=== PATIENT | male | born 1970 | race Caucasian/White ===

== ENCOUNTER 2021-08-10 18:51 | Observation (INO) ==
[2021-08-10 19:36] LABS: Basophils # (auto) 0.01 K/uL (0-0.2); Basophils % (auto) 0.1 %; Eosinophils # (auto) 0.04 K/uL (0-0.5); Eosinophils % (auto) 0.5 %; Hematocrit (blood only) 45.7 % (42-52); Hemoglobin 15.6 g/dL (14.0-18.0); Immature Granulocytes # (auto) 0.01 K/uL (0.00-0.02); Immature Granulocytes % (auto) 0.1 %; Lymphocytes # (auto) 0.43 K/uL (1.2-3.4); Lymphocytes % (auto) 5.3 %; Mean Corpuscular Hemoglobin 31.1 pg (25-34); Mean Corpuscular Hgb Conc 34.1 g/dL (32-36); Mean Platelet Volume 10.1 fL (7.4-10.4); Monocytes # (auto) 0.28 K/uL (0.11-0.59); Monocytes % (auto) 3.5 %; Neutrophils % (auto) 90.5 %; Platelet Count 161 K/uL (130-400); RDW Coefficient of Variation 12.9 % (11.5-14.5); RDW Standard Deviation 43.1 fL (36.4-46.3); Red Blood Count 5.02 M/uL (4.7-6.1); White Blood Count 8.07 K/uL (4.8-10.8)
[2021-08-10 19:47] LABS: Partial Thromboplastin Time 26.5 Seconds (21.0-31.0); Prothrombin Time 10.9 Seconds (9.0-12.0)
[2021-08-10 19:57] LABS: Troponin I < 0.03 ng/ml (0-0.04)
[2021-08-10 19:58] LABS: Alanine Aminotransferase 32 U/L (7-52); Albumin Globulin Ratio 1.5 (0.9-2); Albumin Level 4.7 gm/dl (3.4-5.0); Alkaline Phosphatase 33 U/L (34-104); Anion Gap 9 (3-11); Aspartate Aminotransferase 23 U/L (13-39); BUN Creatinine Ratio 15.2 (10-20); Bilirubin,Total 1.2 mg/dl (0.2-1.0); Blood Urea Nitrogen 15 mg/dl (6-23); Calcium 9.2 mg/dl (8.5-10.1); Carbon Dioxide 23 mmol/L (21-32); Chloride 101 mmol/L (98-107); Creatinine Clr Calc Pharmacy 125.5 ml/min; Est GFR (African American) 101.1 ml/min; Est GFR (Non-African American) 87.2 ml/min; Globulin 3.1 gm/dl (2.5-4.0); Glucose 110 mg/dl (70-99(Fasting)); Potassium 4.1 mmol/L (3.5-5.1); Sodium 133 mmol/L (136-145); Total Protein 7.8 gm/dl (6.0-8.3)
[2021-08-10 20:13] LABS: Appearance Urine Clear (Clear); Bilirubin Urine Negative (Negative); Blood Urine Negative (Negative); Color Urine Yellow; Glucose Urine UA Negative (Negative); Ketones Urine Negative (Negative); Leukocyte Esterase Urine Negative (Negative); Nitrite Urine Negative (Negative); Protein Urine Negative (Negative); Specific Gravity Urine 1.019 (1.000-1.030); Urobilinogen Urine Negative (Negative)
[2021-08-10] MEDS ORDERED: SODIUM CHLORIDE 0.9% 500 ML IV ONE (20:16)
[2021-08-10] MEDS ORDERED: ASPIRIN CHEW 324 MG PO STA (20:21)
[2021-08-10] MEDS ORDERED: SODIUM CHLORIDE 0.9% 1000ML 1,000 ML IV ONE (20:21)
--- NOTE | 2021-08-10 20:21 | Emergency Department Note ---
Impression & Plan Mobitz type 1 second degree atrioventricular block, Hyponatremia, Dizziness, Bigeminy ED Provider Note NAME: SAMMIE CHINO AGE: 51 SEX: M : 1970 ARRIVES VIA: Walk-In INFORMANT: Patient ED PROVIDER(S): JuanJ ose Marino DO CHIEF COMPLAINT: dizzy HPI: Patient is a 51-year-old male who presents the ER not feeling well. Symptoms started around 1 PM today. He has been getting some twinges in his chest intermittently. He feels dizzy and weak like he is intoxicated. He admits to no belly pain, nausea, vomiting, or diarrhea. No dysuria, urgency, or frequency. No significant shortness of breath. Unsteadiness comes and goes but he is feeling a little bit better currently. Does have a history of elevated blood pressure but resolved with losing weight. Denies any history of diabetes, hyperlipidemia, CAD or sudden in his family at young age. No previous apparent rhythms. ROS: See above HPI for pertinent positives & negatives. A total of 10 systems reviewed and were otherwise negative. PAST MEDICAL HISTORY:See Below PAST SURGICAL HISTORY:See Below FAMILY HISTORY:See Below SOCIAL HISTORY:See Below HOME MEDICATIONS:See Below ALLERGIES:See Below VITALS:See Below PHYSICAL EXAMINATION: GENERAL: Sitting up in bed, alert, well appearing, well nourished, no distress, non-toxic EYE EXAM: normal conjunctiva. OROPHARYNX: no exudate, no erythema, lips, buccal mucosa, and tongue normal and mucous membranes are moist NECK: supple, no nuchal rigidity, no adenopathy, non-tender LUNGS: Clear to auscultation. Normal chest wall mechanics HEART: no murmurs, S1 normal and S2 normal ABDOMEN: abdomen soft, non-tender, normo-active bowel sounds, no masses, no rebound or guarding. UPPER EXTREMITIES: upper extremities are grossly normal. LOWER EXTREMITIES: No pitting edema. NEURO EXAM: Normal sensorium, cranial nerves II-XII intact, normal speech, no weakness of arms, no weakness of legs. No drift. Finger to nose intact. Gross sensation intact. MEDICAL DECISION MAKING: Patient is a 51-year-old male who presents the ER for feeling dizzy and some intermittent chest pain. IV was established blood work was obtained. Labs showed no significant leukocytosis or anemia. INR was unremarkable. BMP with mild hyponatremia. LFTs bilirubin was unremarkable. Troponin was negative. UA was clean. Covid was negative. Chest x-ray was unremarkable and CT head was negative. EKG showed Mobitz 1 and intermittently on the monitor he did have some bigeminy. He notes he is feeling better my question if earlier today when he was symptomatic he could have went into a Mobitz 2 however this was not seen on monitoring. Based on the abnormal EKG and the dizziness to discussed the hospitalist for observation. Triage Nursing notes reviewed. Limited review of prior medical records performed Vital Signs: reviewed and remarkable for HTN Differential diagnosis: Differential diagnosis includes etiologies such as benign positional vertigo, dehydration, hypovolemia, anemia, tumor, infection, hypoglycemia, electrolyte abnormalities, cardiac sources, intracerebral event, toxicologic, neurological, as well as others were entertained. ER treatment provided: See below Diagnostics interpreted by me: ECG: Sinus rhythm with a Mobitz 1 rate of 60 Normal axis Right bundle branch block Nonspecific ST wave changes in the lateral leads QTC 410 Cardiac Monitoring: An order was placed for continuous cardiac monitoring. The monitor shows a rate of 60 with bigeminy rhythm. Laboratory studies: As stated above and show below. Imaging studies: CT head was negative Chest x-ray was unremarkable Consultation(s): Discussed with Evelyn Lubin for further evaluation Procedures: none Critical Care: None Past Med/Surg History Social History Smoking Status: Former smoker Tobacco Type: Cigarettes Feels Safe at Home: Yes Allergies Allergies Allergy/AdvReac Type Severity Reaction Status Date / Time adhesive tape AdvReac SKIN TEARS Unverified 08/10/21 22:59 Home Meds Home Medications Medication Instructions Recorded Confirmed No Known Home Medications 08/10/21 08/10/21 Results & Data (ED) Vital Signs Vital Signs - 24 hr 08/10/21 18:59 08/10/21 19:52 08/10/21 21:00 Temperature 36.9 C Temperature Source Temporal Artery Scan Pulse Rate 60 Pulse Rate [Right Finger] 65 70 Pulse Rate from SpO2 Sensor Pulse Strength [Right Finger] Normal Normal Respiratory Rate 16 17 18 Respiratory Effort / Characteristics Non-Labored Non-Labored Respiratory Depth Normal Normal Normal Respiratory Pattern Regular Regular Blood Pressure 189/98 H Blood Pressure [Right Arm] 178/97 H 166/91 H Blood Pressure Mean 128 Blood Pressure Mean [Right Arm] 124 116 Blood Pressure Position [Right Arm] Lying Pulse Oximetry 96 96 96 Oxygen Delivery Method Room Air Room Air Room Air Sepsis Recent Fever Within 48 Hours No Sepsis New/Unexplained Change in Mental Status No Sepsis Action Taken by Nursing No Action Required 08/10/21 22:45 08/10/21 23:00 Temperature Temperature Source Pulse Rate 79 65 Pulse Rate [Right Finger] Pulse Rate from SpO2 Sensor 78 70 Pulse Strength [Right Finger] Respiratory Rate 19 18 Respiratory Effort / Characteristics Respiratory Depth Respiratory Pattern Blood Pressure 178/91 H Blood Pressure [Right Arm] Blood Pressure Mean 120 Blood Pressure Mean [Right Arm] Blood Pressure Position [Right Arm] Pulse Oximetry 96 96 Oxygen Delivery Method Sepsis Recent Fever Within 48 Hours Sepsis New/Unexplained Change in Mental Status Sepsis Action Taken by Nursing Laboratory Data Result diagrams: 08/10/21 19:27 08/10/21 19:27 Lab Results 08/10/21 08/10/21 08/10/21 Range/Units 19:27 19:27 19:27 WBC 8.07 (4.8-10.8) K/uL RBC 5.02 (4.7-6.1) M/uL Hgb 15.6 (14.0-18.0) g/dL Hct 45.7 (42-52) % MCV 91.0 (80-100) fL MCH 31.1 (25-34) pg MCHC 34.1 (32-36) g/dL RDW Std Deviation 43.1 (36.4-46.3) fL RDW Coeff of [place] 12.9 (11.5-14.5) % Plt Count 161 (130-400) K/uL MPV 10.1 (7.4-10.4) fL Immature Gran % (Auto) 0.1 % Neut % (Auto) 90.5 % Lymph % (Auto) 5.3 % [place] % (Auto) 3.5 % Eos % (Auto) 0.5 % Baso % (Auto) 0.1 % Neut # (Auto) 7.30 H (1.4-6.5) K/uL Lymph # (Auto) 0.43 L (1.2-3.4) K/uL [place] # (Auto) 0.28 (0.11-0.59) K/uL Eos # (Auto) 0.04 (0-0.5) K/uL Baso # (Auto) 0.01 (0-0.2) K/uL Immature Gran # (Auto) 0.01 (0.00-0.02) K/uL PT 10.9 (9.0-12.0) Seconds INR 1.0 (0.9-1.1) APTT 26.5 (21.0-31.0) Seconds PTT Ratio 1.0 Sodium 133 L (136-145) mmol/L Potassium 4.1 (3.5-5.1) mmol/L Chloride 101 (98-107) mmol/L Carbon Dioxide 23 (21-32) mmol/L Anion Gap 9 (3-11) BUN 15 (6-23) mg/dl Creatinine 0.99 (0.6-1.4) mg/dl Est Cr Clr Drug Dosing 125.5 ml/min Est GFR ( Amer) 101.1 ml/min Est GFR (Non-Af Amer) 87.2 ml/min BUN/Creatinine Ratio 15.2 (10-20) Glucose 110 H (70-99(Fasting)) mg/dl Calcium 9.2 (8.5-10.1) mg/dl Phosphorus (2.5-4.9) mg/dl Magnesium (1.7-2.4) mg/dl Total Bilirubin 1.2 H (0.2-1.0) mg/dl AST 23 (13-39) U/L ALT 32 (7-52) U/L Alkaline Phosphatase 33 L (34-104) U/L Troponin I < 0.03 (0-0.04) ng/ml Total Protein 7.8 (6.0-8.3) gm/dl Albumin 4.7 (3.4-5.0) gm/dl Globulin 3.1 (2.5-4.0) gm/dl Albumin/Globulin Ratio 1.5 (0.9-2) Urine Color Urine Appearance (Clear) Urine pH (4.5-7.5) Ur Specific [place] (1.000-1.030) Urine Protein (Negative) Urine Glucose (UA) (Negative) Urine Ketones (Negative) Urine Blood (Negative) Urine Nitrite (Negative) Urine Bilirubin (Negative) Urine Urobilinogen (Negative) Ur Leukocyte Esterase (Negative) SARS-CoV-2, RNA, NAAT (NEGATIVE) 03/23/22 03/23/22 03/23/22 Range/Units 19:27 20:43 Unknown WBC (4.8-10.8) K/uL RBC (4.7-6.1) M/uL Hgb (14.0-18.0) g/dL Hct (42-52) % MCV (80-100) fL MCH (25-34) pg MCHC (32-36) g/dL RDW Std Deviation (36.4-46.3) fL RDW Coeff of [place] (11.5-14.5) % Plt Count (130-400) K/uL MPV (7.4-10.4) fL Immature Gran % (Auto) % Neut % (Auto) % Lymph % (Auto) % [place] % (Auto) % Eos % (Auto) % Baso % (Auto) % Neut # (Auto) (1.4-6.5) K/uL Lymph # (Auto) (1.2-3.4) K/uL [place] # (Auto) (0.11-0.59) K/uL Eos # (Auto) (0-0.5) K/uL Baso # (Auto) (0-0.2) K/uL Immature Gran # (Auto) (0.00-0.02) K/uL PT (9.0-12.0) Seconds INR (0.9-1.1) APTT (21.0-31.0) Seconds PTT Ratio Sodium (136-145) mmol/L Potassium (3.5-5.1) mmol/L Chloride (98-107) mmol/L Carbon Dioxide (21-32) mmol/L Anion Gap (3-11) BUN (6-23) mg/dl Creatinine (0.6-1.4) mg/dl Est Cr Clr Drug Dosing ml/min Est GFR ( Amer) ml/min Est GFR (Non-Af Amer) ml/min BUN/Creatinine Ratio (10-20) Glucose (70-99(Fasting)) mg/dl Calcium (8.5-10.1) mg/dl Phosphorus 2.2 L (2.5-4.9) mg/dl Magnesium 2.1 (1.7-2.4) mg/dl Total Bilirubin (0.2-1.0) mg/dl AST (13-39) U/L ALT (7-52) U/L Alkaline Phosphatase (34-104) U/L Troponin I (0-0.04) ng/ml Total Protein (6.0-8.3) gm/dl Albumin (3.4-5.0) gm/dl Globulin (2.5-4.0) gm/dl Albumin/Globulin Ratio (0.9-2) Urine Color Yellow Urine Appearance Clear (Clear) Urine pH 5.0 (4.5-7.5) Ur Specific [place] 1.019 (1.000-1.030) Urine Protein Negative (Negative) Urine Glucose (UA) Negative (Negative) Urine Ketones Negative (Negative) Urine Blood Negative (Negative) Urine Nitrite Negative (Negative) Urine Bilirubin Negative (Negative) Urine Urobilinogen Negative (Negative) Ur Leukocyte Esterase Negative (Negative) SARS-CoV-2, RNA, NAAT NEGATIVE (NEGATIVE) Administered Medications Discontinued Medications Aspirin (Aspirin Chew 324 Mg) 324 mg PO NOW STA Stop: 08/10/21 20:22 Last Admin: 08/10/21 20:37 Dose: 324 mg Documented by: [id number] Sodium Chloride (Nss) 500 mls @ 999 mls/hr IV .Q31M ONE Stop: 08/10/21 20:46 Last Infusion: 08/10/21 21:33 Dose: 0 mls/hr Documented by: [id number] Admin: 08/10/21 20:37 Dose: 999 mls/hr Documented by: [id number] Sodium Chloride (Nss 1000ml) 1,000 mls @ 999 mls/hr IV .Q1H1M ONE Stop: 08/10/21 21:21 Last Infusion: 08/10/21 21:39 Dose: 0 mls/hr Documented by: [id number] Admin: 08/10/21 20:37 Dose: 999 mls/hr Documented by: [id number] Discharge Plan Visit Data Chief Complaint: Dizziness Stated Complaint: LIGHTHEADED, TWITCHY, FEELS LIKE DRUNK ED Provider: Juan Jose Marino Discharge Problem: Mobitz type 1 second degree atrioventricular block, Hyponatremia, Dizziness, Bigeminy Forms Stand Alone Forms: [employer] Prescriptions Prescriptions: No Action No Known Home Medications RF: 0 Referrals Referrals: PCP,NO [Primary Care Provider] -
[2021-08-10 23:12] LABS: Magnesium 2.1 mg/dl (1.7-2.4); Phosphorus 2.2 mg/dl (2.5-4.9)
--- NOTE | 2021-08-10 23:12 | History & Physical Report ---
Date of Service August 10, 2021 Assessment & Plan (1) Mobitz type 1 second degree atrioventricular block: (2) Hyponatremia: (3) Hypophosphatemia: Plan: David Estrada is a 51-year-old male with no known PMH who is a former smoker (quit 7-8 years ago) here with complaint of a strange feeling in his chest and dizziness. Found to have Mobitz type I AV block on EKG. Mobitz type I second-degree AV block - Unclear etiology -- potassium and magnesium normal, no medications, no obvious infectious symptoms - Lyme antibodies and TSH to rule these out as reversible causes - If no reversible cause found and patient continues to be symptomatic oir were to become unstable may be candidate for pacemaker - Will consult cardiology in AM - Echocardiogram ordered - Admit for observation to PCU - Continuous cardiac monitoring - If unstable would require atropine IV and, if ineffective, transcutaneous pacing and/or dopamine vs epinephrine infusion - NPO in case of need for pacemaker -- NSS @ 125cc/h for mIVF Hyponatremia - Mildly low at 133 - Will give NSS at 125 cc/h overnight - If unresolved could possibly benefit from further workup to find cause - BMP in AM Hypophosphatemia - Phos at 2.2 - Will replete and recheck in AM DVT ppx: Lovenox 40mg SQ daily History of Present Illness Primary Care Provider: NO PCP David Estrada is a 51-year-old male with no known PMH who is a former smoker (quit 7-8 years ago) here with complaint of a strange feeling in his chest and dizziness. Patient states his symptoms began today aroun 1PM -- he started feeling something in his chest, which he characterizes as "twinges", but says it was not pain. He also felt dizzy and weak. [place] unsteady on his feet to a certain degree. He denies any falls, n/v, f/c, SOB, cough, abd pain, weight changes, stool changes, skin changes, urinary symptoms, swelling, numbness. Patient states he was found to have elevated BP in the past but lost weight and this resolved. He does not have a history of any other medical conditions. Denies family history of cardiac disease or sudden cardiac . At present, patient states the chest discomfort has now gone away, and since he is resting in bed not really feeling dizzy or unsteady. In the ED patient had an EKG showing Mobitz Type I 2nd degree heart block. CXR shows no obvious acute pulmonary disease -- he does have an enlarged cardiac silhouette. He had CT head showing mild brain volume loss. No mass, hemorrhage, or acute infarct. Lab work showed normal WBC, Hgb, and Plt. Sodium was mildly decreased to 133, K was normal at 4.1, Mag normal at 2.1, and Phos low at 2.2. Troponin was negative. He received NSS 2L bolus and aspirin 324mg PO x1. Allergies Allergy/AdvReac Type Severity Reaction Status Date / Time adhesive tape AdvReac SKIN TEARS Unverified 08/10/21 22:59 Home Medications Medication Instructions Recorded Confirmed Type No Known Home Medications 08/10/21 08/10/21 History Past Med/Surg History Social History Smoking Status: Never smoker Tobacco Type: Cigarettes Do You Dip or Chew Tobacco: Yes; Tobacco Cessation Education Requested by Patient: No Hx Alcohol Use: Yes Alcohol type: beer Hx Substance Use: No Preferred Language: Maldivian Communication Ability: Effective Cigar Wrapper Required: No Beliefs That Will Affect Care: None Current Living Situation: Alone Other Information That Helps Us Care for You: No Feels Safe at Home: Yes Assistive Devices: None Review of Systems Review of Systems: All systems reviewed & are unremarkable except as noted in HPI & below Physical Exam Physical Exam: GENERAL: A&Ox3. NAD. HEENT: PERRL, EOMI. Moist mucous membranes. NECK: No JVD. No lymphadenopathy. CHEST/LUNGS: CTAB A/P. No crackles, wheezes, rales, ronchi. HEART: RRR. No m/g/r. No carotid bruits. ABDOMEN: NT/ND, soft. BS+ x4 EXTREMITIES: No cyanosis, no clubbing, no edema SKIN: Warm and dry. No rashes or lesions. PSYCHIATRIC: Euthymic affect, no SI, no pressured speech, no hallucinations NEUROLOGIC: No FND. CN II-XII grossly intact. Results & Data Results & Data ([facility]) Vital Signs (Past 12 Hours) Vital Signs Temp Pulse Pulse Resp BP BP Pulse Ox 08/10/21 23:00 65 18 178/91 H 96 08/10/21 22:45 79 19 96 08/10/21 21:00 70 18 166/91 H 96 08/10/21 19:52 65 17 178/97 H 96 08/10/21 18:59 36.9 C 60 16 189/98 H 96 Laboratory Results Laboratory Results WBC 8.07 K/uL (4.8-10.8) 08/10/21: RBC 5.02 M/uL (4.7-6.1) 08/10/21: Hgb 15.6 g/dL (14.0-18.0) 08/10/21 Hct 45.7 % (42-52) 08/10/21 MCV 91.0 fL (80-100) 08/10/21 MCH 31.1 pg (25-34) 08/10/21 MCHC 34.1 g/dL (32-36) 08/10/21 RDW Std Deviation 43.1 fL (36.4-46.3) 08/10/21 RDW Coeff of Tova 12.9 % (11.5-14.5) 08/10/21 Plt Count 161 K/uL (130-400) 08/10/21 MPV 10.1 fL (7.4-10.4) 08/10/21 Immature Gran % (Auto) 0.1 % 08/10/21 Neut % (Auto) 90.5 % 08/10/21: Lymph % (Auto) 5.3 % 08/10/21 [place] % (Auto) 3.5 % 08/10/21: Eos % (Auto) 0.5 % 08/10/21: Baso % (Auto) 0.1 % 08/10/21 Neut # (Auto) 7.30 K/uL (1.4-6.5) H 08/10/21: Lymph # (Auto) 0.43 K/uL (1.2-3.4) L 08/10/21 [place] # (Auto) 0.28 K/uL (0.11-0.59) 08/10/21 Eos # (Auto) 0.04 K/uL (0-0.5) 08/10/21 Baso # (Auto) 0.01 K/uL (0-0.2) 08/10/21 19: Immature Gran # (Auto) 0.01 K/uL (0.00-0.02) 08/10/21 19: PT 10.9 Seconds (9.0-12.0) 08/10/21 19: INR 1.0 (0.9-1.1) 08/10/21: APTT 26.5 Seconds (21.0-31.0) 08/10/21: PTT Ratio 1.0 08/10/21 19: Sodium 133 mmol/L (136-145) L 08/10/21: Potassium 4.1 mmol/L (3.5-5.1) 08/10/21: Chloride 101 mmol/L (98-107) 08/10/21: Carbon Dioxide 23 mmol/L (21-32) 08/10/21: Anion Gap 9 (3-11) 08/10/21: BUN 15 mg/dl (6-23) 08/10/21 19: Creatinine 0.99 mg/dl (0.6-1.4) 08/10/21: Est Cr Clr Drug Dosing 125.5 ml/min 08/10/21: Est GFR ( Amer) 101.1 ml/min 08/10/21: Est GFR (Non-Af Amer) 87.2 ml/min 08/10/21: BUN/Creatinine Ratio 15.2 (10-20) 08/10/21 19: Glucose 110 mg/dl (70-99(Fasting)) H 08/10/21 19: Calcium 9.2 mg/dl (8.5-10.1) 08/10/21: Phosphorus 2.2 mg/dl (2.5-4.9) L 08/10/21: Magnesium 2.1 mg/dl (1.7-2.4) 08/10/21 19: Total Bilirubin 1.2 mg/dl (0.2-1.0) H 08/10/21 19: AST 23 U/L (13-39) 08/10/21 19: ALT 32 U/L (7-52) 08/10/21 19:27 Alkaline Phosphatase 33 U/L (34-104) L 08/10/21 19:27 Troponin I < 0.03 ng/ml (0-0.04) 08/10/21 19: Total Protein 7.8 gm/dl (6.0-8.3) 08/10/21 19:27 Albumin 4.7 gm/dl (3.4-5.0) 08/10/21 19: Globulin 3.1 gm/dl (2.5-4.0) 08/10/21 19: Albumin/Globulin Ratio 1.5 (0.9-2) 08/10/21 19: TSH 0.828 uIu/ml (0.300-4.500) 08/10/21 19:47 Urine Color Yellow 08/10/21 Unknown Urine Appearance Clear (Clear) 08/10/21 Unknown Urine pH 5.0 (4.5-7.5) 08/10/21 Unknown Ur Specific [place] 1.019 (1.000-1.030) 08/10/21 Unknown Urine Protein Negative (Negative) 08/10/21 Unknown Urine Glucose (UA) Negative (Negative) 08/10/21 Unknown Urine Ketones Negative (Negative) 08/10/21 Unknown Urine Blood Negative (Negative) 08/10/21 Unknown Urine Nitrite Negative (Negative) 08/10/21 Unknown Urine Bilirubin Negative (Negative) 08/10/21 Unknown Urine Urobilinogen Negative (Negative) 08/10/21 Unknown Ur Leukocyte Esterase Negative (Negative) 08/10/21 Unknown Lyme Disease IgG Ab Negative (Negative) 08/10/21 19:47 Lyme Disease IgM Ab Negative (Negative) 08/10/21 19:47 SARS-CoV-2, RNA, NAAT NEGATIVE (NEGATIVE) 08/10/21 20:43 Code Status & VTE Plan VTE Prophylaxis Plan VTE Prophylaxis will be ordered: Yes Supervising Physician Co-Signing Physician Notes Patient seen and examined, chart reviewed, case discussed with Dr. Prieto and I agree with the assessment and plan as above. In brief, patient is a 51yo male with no significant past medical history presenting with episodic chest discomfort, dizziness. Unremarkable exam No evidence of failure +S1/S2, regular, no m/r/g. Cardiac sounds somewhat muffled - possibly secondary to body habitus Labs and images reviewed Assessment/Plan -Telemetry monitoring -Trend troponin -Check 2D echo -Cardiology consultation appreciated -Remainder as above Resident Activity Tracking Resident Involvement: Resident Care Provided Care Provided: Adult Hospital Medicine
[2021-08-11] MEDS ORDERED: MoRPHine SULFATE 2 MG/ML CARP IV PRN (01:11)
[2021-08-11] MEDS ORDERED: ACETAMINOPHEN 325 MG TAB PO PRN (01:11)
[2021-08-11] MEDS ORDERED: SODIUM CHLORIDE 0.9% 1000ML 1,000 ML IV SCH (01:11)
[2021-08-11] MEDS ORDERED: SODIUM PHOSPHATE 3 MMOL/1 ML INFUSION IV ONE (01:11)
[2021-08-11] MEDS ORDERED: NITROGLYCERIN SL 0.4 MG/TAB TAB SL PRN (01:11)
[2021-08-11] MEDS ORDERED: MAGNESIUM HYDROXIDE SUSP 30 ML UDC PO PRN (01:11)
[2021-08-11] MEDS ORDERED: SODIUM PHOSPHATE 30 MMOL in SODIUM CHLORIDE 0.9% 500 ML IV ONE (01:30)
[2021-08-11] MEDS: SODIUM CHLORIDE 0.9% 1000ML 1,000 ML IV SCH ×2 (02:12→10:47)
[2021-08-11 02:24] LABS: Lyme Ab IgG w/WB Rflx Negative (Negative); Lyme Ab IgM w/WB Rflx Negative (Negative)
--- NOTE | 2021-08-11 03:51 | Billing Data ---
Date of Service August 11, 2021 Coding Level of Care Code INT OBSERVATION CARE 49M LVL 2
[2021-08-11 06:20] LABS: Basophils # (auto) 0.01 K/uL (0-0.2); Basophils % (auto) 0.2 %; Eosinophils # (auto) 0.04 K/uL (0-0.5); Eosinophils % (auto) 0.7 %; Hematocrit (blood only) 40.7 % (42-52); Hemoglobin 14.1 g/dL (14.0-18.0); Immature Granulocytes # (auto) 0.01 K/uL (0.00-0.02); Immature Granulocytes % (auto) 0.2 %; Lymphocytes # (auto) 0.71 K/uL (1.2-3.4); Lymphocytes % (auto) 13.1 %; Mean Corpuscular Hemoglobin 31.1 pg (25-34); Mean Corpuscular Hgb Conc 34.6 g/dL (32-36); Mean Corpuscular Volume 89.8 fL (80-100); Mean Platelet Volume 10.3 fL (7.4-10.4); Monocytes # (auto) 0.15 K/uL (0.11-0.59); Monocytes % (auto) 2.8 %; Neutrophils # (auto) 4.48 K/uL (1.4-6.5); Platelet Count 148 K/uL (130-400); RDW Coefficient of Variation 12.9 % (11.5-14.5); RDW Standard Deviation 42.2 fL (36.4-46.3); Red Blood Count 4.53 M/uL (4.7-6.1)
[2021-08-11 07:05] LABS: Albumin Globulin Ratio 1.5 (0.9-2); Albumin Level 3.8 gm/dl (3.4-5.0); BUN Creatinine Ratio 11.5 (10-20); Calcium 8.1 mg/dl (8.5-10.1); Creatinine Clr Calc Pharmacy 141.9 ml/min; Est GFR (Non-African American) 99.2 ml/min; Globulin 2.5 gm/dl (2.5-4.0); Phosphorus 3.9 mg/dl (2.5-4.9); Potassium 3.6 mmol/L (3.5-5.1); Total Protein 6.3 gm/dl (6.0-8.3)
--- NOTE | 2021-08-11 07:19 | CT Scan Report ---
CT head/brain wo con CLINICAL HISTORY: dizzy Technique: Contiguous axial CT images of the head were acquired from the base of the skull to the heath annelise without intravenous contrast administration. Images were viewed in brain, subdural and bone [facility]. Automated dose lowering techniques and/or adjustment according to patient size were utilized for this exam. Comparison: None available at the time of this dictation. Findings: Areas of decreased attenuation are present in the periventricular and subcortical white matter bilate rally consistent with small vessel ischemic disease. Generalized cerebral atrophy with commensurate e nlargement of the ventricles, sulci, and cisterns is also present. There is no acute intracranial hem orrhage or evidence of acute territorial infarction. No shift of the midline structures, mass effect, or extra-axial abnormalities are shown. Atherosclerotic calcifications are present in the intracran ial segments of the internal carotid arteries. Imaged portions of the paranasal sinuses and mastoid air cells are clear. The orbits appear normal. There are no acute fractures of the calvaria or scalp swelling. Impression: No acute intracranial hemorrhage, no evidence of acute territorial infarction or other acute intracra nial disease process. ACT 112: Negative or not required by law. Electronically signed by: Lucio Irby M.D. 08/11/2021 7:17 AM
--- NOTE | 2021-08-11 07:31 | XRay Report ---
XR chest 1V portable HISTORY: Shortness of breath. COMPARISON: None. FINDINGS: The cardiac silhouette is mildly enlarged. There are low lung volumes. The lungs are clear. No pleural effusions. No pneumothorax. IMPRESSION: Mild cardiomegaly. ACT 112: Negative or not required by law. Electronically signed by: Chidi Quiroz M.D. 08/11/2021 7:29 AM
--- NOTE | 2021-08-11 07:44 | Hospitalist Progress Note ---
Date of Service August 11, 2021 Assessment & Plan (1) Mobitz type 1 second degree atrioventricular block: (2) Hyponatremia: (3) Hypophosphatemia: Plan: David Estrada is a 51-year-old male with no known PMH who is a former smoker (quit 7-8 years ago) here with complaint of a strange feeling in his chest and dizziness. Found to have Mobitz type I AV block on EKG. Mobitz type I second-degree AV block - Unclear etiology -- potassium and magnesium normal, no medications, no obvious infectious symptoms - Lyme antibodies and TSH to rule these out as reversible causes - If no reversible cause found and patient continues to be symptomatic oir were to become unstable may be candidate for pacemaker - Will consult cardiology in AM - Echocardiogram ordered - Admit for observation to PCU - Continuous cardiac monitoring - If unstable would require atropine IV and, if ineffective, transcutaneous pacing and/or dopamine vs epinephrine infusion - NPO in case of need for pacemaker -- NSS @ 125cc/h for mIVF Hyponatremia - Mildly low at 133 - Will give NSS at 125 cc/h overnight - If unresolved could possibly benefit from further workup to find cause - BMP in AM Hypophosphatemia - Phos at 2.2 - Will replete and recheck in AM DVT ppx: Lovenox 40mg SQ daily Admission and Anticipated Discharge Date Admission Date: August 10, 2021 Results & Data Results & Data ([facility]) Vital Signs (Past 12 Hours) Vital Signs Temp Pulse Pulse Resp BP BP Pulse Ox 08/11/21 02:56 36.7 C 78 18 135/81 96 08/11/21 01:13 37.8 C H 63 16 163/89 H 95 08/11/21 00:47 65 18 95 08/10/21 23:00 65 18 178/91 H 96 08/10/21 22:45 79 19 96 08/10/21 21:00 70 18 166/91 H 96 08/10/21 19:52 65 17 178/97 H 96 Pulse Ox 08/11/21 02:56 08/11/21 01:13 95 08/11/21 00:47 08/10/21 23:00 08/10/21 22:45 08/10/21 21:00 08/10/21 19:52
[2021-08-11] MEDS ORDERED: ENOXAPARIN INJ 40 MG/0.4 ML SYR SQ SCH (09:00)
--- NOTE | 2021-08-11 11:23 | XCELERA ---
[id number]
--- NOTE | 2021-08-11 13:30 | Cardiology Consultation ---
Date of Consultation August 11, 2021 Assessment & Plan (1) Mobitz type 1 second degree atrioventricular block: 1. Mobitz 1 av conduction: The patient has an element of conduction disease that is unusual for his age. (Lyme screening was normal) Generally speaking this represents some worsening AV murali function. His symptoms do not appear to correlate with his rhythm disturbance. He had the same rhythm yesterday with symptoms as he does today without symptoms. He did not report presyncope or syncope. He does not appear to have other symptoms associated with bradycardia or arrhythmia. It is very likely that his heart rate picks up and the conduction improves with activity. We discussed symptoms of which to be aware. Unclear if his current conduction disease could be related to untreated sleep apnea. An infiltrative process or sarcoidosis could also produce conduction abnormalities, but on echo there was No cardiomyopathy or abnormal appearance to the myocardium Did not feel he requires any additional cardiac follow-up in the absence of new symptoms. I feel he could be safely discharged home. History of Present Illness Reason for Consultation: Dizziness, conduction disease Requesting Physician: Galen Attending Physician: Jaspal Aaron MD History of Present Illness The patient is a 51-year-old gentleman without a known history cardiac disease who presented to the hospital with symptoms of a fluttering in the chest this appeared to occur yesterday while at work. It may have been associated with some mild lightheadedness that was not described as presyncopal in nature. Due to the persistent nature of the symptoms the patient presented to the emergency room for evaluation. He was discovered to have a right bundle branch block and Mobitz 1 conduction on baseline x-ray and was admitted for observation. The patient did not report any other associated symptoms. He is accustomed to routine work in activity without significant dizziness or lightheadedness. He did not describe any other episodes of presyncope or syncope. He does not appear to have other limitations associated with activity. He did not report dyspnea or chest pain. He does have a sleep disturbance and has been evaluated for obstructive sleep apnea in the past. Currently untreated. This morning states that his symptoms have resolved and he has been feeling well. He reported feeling back to his normal self. Allergies Allergy/AdvReac Type Severity Reaction Status Date / Time adhesive tape AdvReac SKIN TEARS Unverified 08/10/21 22:59 Home Medications Medication Instructions Recorded Confirmed Type No Known Home Medications 08/10/21 08/10/21 History Patient History Social History Smoking Status: Never smoker Tobacco Type: Cigarettes Do You Dip or Chew Tobacco: Yes; Tobacco Cessation Education Requested by Patient: No Hx Alcohol Use: Yes Alcohol type: beer Hx Substance Use: No Preferred Language: Yoruba Communication Ability: Effective Broke Man Required: No Beliefs That Will Affect Care: None Current Living Situation: Alone Other Information That Helps Us Care for You: No Feels Safe at Home: Yes Assistive Devices: None Review of Systems Review of Systems: Per HPI Physical Exam Physical Exam: The patient is alert and oriented. Mood and affect appeared normal. He answered all questions appropriately. HEENT: Pupils are equal and reactive to light and accommodation. Extraocular movements are intact. The sclerae are anicteric. Neuro: Cranial nerves intact Lungs: Clear to auscultation bilaterally. He has good air movement without use of accessory muscles. No rales wheezes or rhonchi. Cardiac: Heart demonstrates a regular rate and rhythm with occasional irregularity. Normal S1 and S2. No murmurs on examination. Pulses: The patient has palpable radial pulses bilaterally that are equal in intensity Extremities: There was no evidence of hypoperfusion. There is no cyanosis or clubbing. There is no edema. Skin: I did not appreciate any rashes on examination today. Results & Data ([facility]) Vital Signs (Past 12 Hours) Vital Signs Temp Pulse Resp BP Pulse Ox 08/11/21 12:10 37.4 C 70 18 138/80 97 08/11/21 08:19 37.1 C 64 18 169/80 H 96 08/11/21 02:56 36.7 C 78 18 135/81 96 Laboratory Results Abnormal Lab Results 08/10/21 08/10/21 08/10/21 19:27 19:27 19:27 WBC 8.07 RBC 5.02 Hgb 15.6 Hct 45.7 MCV 91.0 MCH 31.1 MCHC 34.1 RDW Std Deviation 43.1 RDW Coeff of Tova 12.9 Plt Count 161 MPV 10.1 Immature Gran % (Auto) 0.1 Neut % (Auto) 90.5 Lymph % (Auto) 5.3 Hill % (Auto) 3.5 Eos % (Auto) 0.5 Baso % (Auto) 0.1 Neut # (Auto) 7.30 H Lymph # (Auto) 0.43 L Hill # (Auto) 0.28 Eos # (Auto) 0.04 Baso # (Auto) 0.01 Immature Gran # (Auto) 0.01 PT 10.9 INR 1.0 APTT 26.5 PTT Ratio 1.0 Sodium 133 L Potassium 4.1 Chloride 101 Carbon Dioxide 23 Anion Gap 9 BUN 15 Creatinine 0.99 Est Cr Clr Drug Dosing 125.5 Est GFR ( Amer) 101.1 Est GFR (Non-Af Amer) 87.2 BUN/Creatinine Ratio 15.2 Glucose 110 H Calcium 9.2 Phosphorus Magnesium Total Bilirubin 1.2 H AST 23 ALT 32 Alkaline Phosphatase 33 L Troponin I < 0.03 Total Protein 7.8 Albumin 4.7 Globulin 3.1 Albumin/Globulin Ratio 1.5 TSH Urine Color Urine Appearance Urine pH Ur Specific [place] Urine Protein Urine Glucose (UA) Urine Ketones Urine Blood Urine Nitrite Urine Bilirubin Urine Urobilinogen Ur Leukocyte Esterase Lyme Disease IgG Ab Lyme Disease IgM Ab SARS-CoV-2, RNA, NAAT 08/10/21 08/10/21 08/10/21 19:27 19:47 19:47 WBC RBC Hgb Hct MCV MCH MCHC RDW Std Deviation RDW Coeff of Tova Plt Count MPV Immature Gran % (Auto) Neut % (Auto) Lymph % (Auto) Hill % (Auto) Eos % (Auto) Baso % (Auto) Neut # (Auto) Lymph # (Auto) Hill # (Auto) Eos # (Auto) Baso # (Auto) Immature Gran # (Auto) PT INR APTT PTT Ratio Sodium Potassium Chloride Carbon Dioxide Anion Gap BUN Creatinine Est Cr Clr Drug Dosing Est GFR ( Amer) Est GFR (Non-Af Amer) BUN/Creatinine Ratio Glucose Calcium Phosphorus 2.2 L Magnesium 2.1 Total Bilirubin AST ALT Alkaline Phosphatase Troponin I Total Protein Albumin Globulin Albumin/Globulin Ratio TSH 0.828 Urine Color Urine Appearance Urine pH Ur Specific [place] Urine Protein Urine Glucose (UA) Urine Ketones Urine Blood Urine Nitrite Urine Bilirubin Urine Urobilinogen Ur Leukocyte Esterase Lyme Disease IgG Ab Negative Lyme Disease IgM Ab Negative SARS-CoV-2, RNA, NAAT 08/10/21 08/10/21 08/11/21 20:43 Unknown 05:52 WBC 5.40 RBC 4.53 L Hgb 14.1 Hct 40.7 L MCV 89.8 MCH 31.1 MCHC 34.6 RDW Std Deviation 42.2 RDW Coeff of Tova 12.9 Plt Count 148 MPV 10.3 Immature Gran % (Auto) 0.2 Neut % (Auto) 83.0 Lymph % (Auto) 13.1 Hill % (Auto) 2.8 Eos % (Auto) 0.7 Baso % (Auto) 0.2 Neut # (Auto) 4.48 Lymph # (Auto) 0.71 L Hill # (Auto) 0.15 Eos # (Auto) 0.04 Baso # (Auto) 0.01 Immature Gran # (Auto) 0.01 PT INR APTT PTT Ratio Sodium Potassium Chloride Carbon Dioxide Anion Gap BUN Creatinine Est Cr Clr Drug Dosing Est GFR ( Amer) Est GFR (Non-Af Amer) BUN/Creatinine Ratio Glucose Calcium Phosphorus Magnesium Total Bilirubin AST ALT Alkaline Phosphatase Troponin I Total Protein Albumin Globulin Albumin/Globulin Ratio TSH Urine Color Yellow Urine Appearance Clear Urine pH 5.0 Ur Specific [place] 1.019 Urine Protein Negative Urine Glucose (UA) Negative Urine Ketones Negative Urine Blood Negative Urine Nitrite Negative Urine Bilirubin Negative Urine Urobilinogen Negative Ur Leukocyte Esterase Negative Lyme Disease IgG Ab Lyme Disease IgM Ab SARS-CoV-2, RNA, NAAT NEGATIVE 08/11/21 05:52 WBC RBC Hgb Hct MCV MCH MCHC RDW Std Deviation RDW Coeff of Tova Plt Count MPV Immature Gran % (Auto) Neut % (Auto) Lymph % (Auto) Hill % (Auto) Eos % (Auto) Baso % (Auto) Neut # (Auto) Lymph # (Auto) Hill # (Auto) Eos # (Auto) Baso # (Auto) Immature Gran # (Auto) PT INR APTT PTT Ratio Sodium 134 L Potassium 3.6 Chloride 104 Carbon Dioxide 23 Anion Gap 7 BUN 10 Creatinine 0.87 Est Cr Clr Drug Dosing 141.9 Est GFR ( Amer) 115.0 Est GFR (Non-Af Amer) 99.2 BUN/Creatinine Ratio 11.5 Glucose 106 H Calcium 8.1 L Phosphorus 3.9 D Magnesium 2.0 Total Bilirubin 1.0 AST 16 ALT 23 Alkaline Phosphatase 27 L Troponin I Total Protein 6.3 Albumin 3.8 Globulin 2.5 Albumin/Globulin Ratio 1.5 TSH Urine Color Urine Appearance Urine pH Ur Specific [place] Urine Protein Urine Glucose (UA) Urine Ketones Urine Blood Urine Nitrite Urine Bilirubin Urine Urobilinogen Ur Leukocyte Esterase Lyme Disease IgG Ab Lyme Disease IgM Ab SARS-CoV-2, RNA, NAAT Diagnostic Findings Echocardiogram performed today revealed normal LV systolic function with mild LVH. Stage I diastolic dysfunction. Mild biatrial dilation. Normal right ventricular size and function. Chest x-ray obtained the time admission revealed mild cardiomegaly but no acute cardiopulmonary process Head CT obtained the time admission not reveal any acute intracranial process. ECG Additional Comments: EKG demonstrated normal sinus rhythm with Mobitz 1 conduction and right bundle branch block PG Care Time/CCT Total # of Minutes Spent Total Time Spent with Patient: Total time spent is greater than 50% in coordination of care (as documented) at patient's floor/unit and/or counseling patient: Coding Level of Care Code 57429 Office/OBS Consult Lvl 4 Diagnoses Mobitz type 1 second degree atrioventricular block I44.1
--- NOTE | 2021-08-11 14:23 | Discharge Summary ---
Date of Service August 11, 2021 Admission HPI Per Admitting Provider David Estrada is a 51-year-old male with no known PMH who is a former smoker (quit 7-8 years ago) here with complaint of a strange feeling in his chest and dizziness. Patient states his symptoms began today aroun 1PM -- he started feeling something in his chest, which he characterizes as "twinges", but says it was not pain. He also felt dizzy and weak. [place] unsteady on his feet to a certain degree. He denies any falls, n/v, f/c, SOB, cough, abd pain, weight changes, stool changes, skin changes, urinary symptoms, swelling, numbness. Patient states he was found to have elevated BP in the past but lost weight and this resolved. He does not have a history of any other medical conditions. Denies family history of cardiac disease or sudden cardiac . At present, patient states the chest discomfort has now gone away, and since he is resting in bed not really feeling dizzy or unsteady. In the ED patient had an EKG showing Mobitz Type I 2nd degree heart block. CXR shows no obvious acute pulmonary disease -- he does have an enlarged cardiac silhouette. He had CT head showing mild brain volume loss. No mass, hemorrhage, or acute infarct. Lab work showed normal WBC, Hgb, and Plt. Sodium was mildly decreased to 133, K was normal at 4.1, Mag normal at 2.1, and Phos low at 2.2. Troponin was negative. He received NSS 2L bolus and aspirin 324mg PO x1. Principal Diagnosis Mobitz type I AV block Discharge Exam Constitutional WD/WN, vitals as above Eyes PERRL, conjunctivae normal, anicteric sclerae Neck trachea midline, no thyromegaly Respiratory normal respiratory effort, lungs clear to auscultation Cardiovascular RRR, no murmur, no edema Chest (Breasts) Chest: normal inspection of chest Gastrointestinal (Abdomen) normal bowel sounds, soft, nontender, no hepatosplenomegaly Musculoskeletal Head/Neck/Chest: normocephalic and head atraumatic Skin no rashes, warm and dry Neurologic moves all extremities Psychiatric A+Ox3, euthymic affect Discharge Data Allergies Allergy/AdvReac Type Severity Reaction Status Date / Time adhesive tape AdvReac SKIN TEARS Unverified 08/10/21 22:59 Consultations 08/10/21 22:11 ED Decision to Admit Stat 08/11/21 05:00 Consult Cardiology Routine Ordered Studies 08/10/21 20:16 CT head/brain wo con Urgent Hospital Course (1) Mobitz type 1 second degree atrioventricular block: (2) Hyponatremia: (3) Hypophosphatemia: David Estrada is a 51-year-old male with no known PMH who is a former smoker (quit 7-8 years ago) here with complaint of a strange feeling in his chest and dizziness. Found to have Mobitz type I AV block on EKG. Mobitz type I second-degree AV block Patient admitted to the hospital under observation in the PCU. Patient was kept on telemetry while patient was admitted. Patient was seen by cardiology team who felt at this time that since the patient is asymptomatic does not require any additional intervention nor any formal cardiology follow-up. Patient did not have a PCP as he recently moved to the area. With this in mind, for sake of continuity, patient will follow up with me in the outpatient setting within 1 week to both establish care and continue to monitor his new onset AV block. Pertinent testing included EKG, echo, and Lyme titer. EKG was significant for right bundle branch block and A-V block. Echo showed normal ejection fraction and some mild systolic function but otherwise normal. Hyponatremia - Mildly low at 133 - Will give NSS at 125 cc/h overnight - If unresolved could possibly benefit from further workup to find cause - BMP in a.m. was within normal limits. Hypophosphatemia -Phosphate was repleted appropriately. Total Time Total Time Spent Total Time Spent (In Minutes): 30 Discharge Plan Discharge Items Patient Disposition: Home - Self-Care Reason For Visit: PRESYNCOPE, CHEST DISCOMFORT Discharge Diagnosis: This second-degree AV block Mobitz type I Activity: Per Instructions section Non-emergency contact: Primary Care Provider Call non-emergency contact if: you have any medication questions and your symptoms worsen Follow-up/Referrals: Mahamed White DO [Resident] - 08/16/21 9:10 am (with Dr. Izquierdo ) PCP,NO [Primary Care Provider] - Diet: Regular Addtl Attending Provider Instructions: You came to the hospital for chest discomfort. While you were here you had a work-up done in the ED which showed an EKG abnormality called second-degree AV block. There is information regarding this diagnosis and the attached form. Because of this abnormality you were seen by our chocolate temperer who deemed that because you are not having symptoms and your AV block was intermittent, you do not require any additional work-up or formal follow-up at this time. We do recommend however that you follow-up with a primary care provider within 1 week to both establish care and continue to monitor your heart. Is been a pleasure to be a part of your care and we wish you the best in both your health and your recovery. Pending Studies at Discharge: No Stand-Alone Forms: My [facility] [id number], Work/School Release, Smoking Cessation Medications and DC Order Prescriptions: No Action No Known Home Medications RF: 0 Discharge Orders: Discharge Order (Routine); Ordered 08/11/21 Ordered By: Mahamed Timmons/Other Patient Handouts: Heart Block 2nd Degree Admission Data Admit Date/Time: 08/10/21 23:11 Attending Provider: Jaspal Aaron Admit Provider: Natali Lubin Primary Care Provider: PCP,NO Other Providers: Natali Lubin ; Kuldip Grullon Other Interventions: Discharge Summary Assessment (RN) Last Done: 08/11/21 14:09 Supervising Physician Co-Signing Physician Notes Attending attestation Pt seen and examined in concert with Dr. White. In agreement with the documented findings as noted in the resident documentation with any exceptions or additions as noted here. Reports resolution of atypical chest sensation without further symptoms. Does report considerable increased stress (second divorce) and recent poor PO intake (skipping food for days at a time) with recent prior hx of heavy etOH use (8 drinks per night) which he quit 4 months ago when he moved. On examination, S1/S2 nl RRR no MCG. CTAB. Abd NT/ND BS+ve Mobitz I 2nd degree block - cardiology consult - echocardiogram, lyme titer as noted. EKG as noted above. Repeat EKG at follow up with PCP (Cindy) Hyponatremia, hypophosphatemia - may be related to dietary changes possibly with remote etOH use. Monitoring and consider repeat labs at follow up for stability. Else see resident documentation as noted. Total attending physician time spent on this patient's case on the day of discharge: 40 minutes.
--- NOTE | 2021-08-11 16:53 | Electrocardiogram Report ---
Test Reason : Blood Pressure : / mmHG Vent. Rate : 063 BPM Atrial Rate : 104 BPM P-R Int : 000 ms QRS Dur : 148 ms QT Int : 452 ms P-R-T Axes : 116 080 022 degrees QTc Int : 462 ms Sinus tachycardia with 2nd degree A-V block (Mobitz I) Right bundle branch block T wave abnormality, consider lateral ischemia Abnormal ECG No previous ECGs available Confirmed by Kuldip Grullon ([id number]) on 08/11/2021 4:53:22 PM Referred By: REFERRED SELF Confirmed By:Roshan Grullon
--- NOTE | 2021-08-11 16:54 | Electrocardiogram Report ---
Test Reason : Blood Pressure : / mmHG Vent. Rate : 060 BPM Atrial Rate : 087 BPM P-R Int : 000 ms QRS Dur : 154 ms QT Int : 410 ms P-R-T Axes : -12 079 007 degrees QTc Int : 410 ms Sinus rhythm with 2nd degree A-V block (Mobitz I) Right bundle branch block Abnormal ECG When compared with ECG of 10-AUG-2021 19:22, (unconfirmed) No significant change was found Confirmed by Kuldip Grullon ([id number]) on 08/11/2021 4:53:43 PM Referred By: REFERRED SELF Confirmed By:Roshan Grullon
== END 2021-08-11 14:43 | disposition home or self-care (01) ==
LOC: ED 18:51 → 2S 18:51 → SUATTDRO 23:11 → 2S 08-11 00:47
DX: Z91.048 Other nonmedicinal substance allergy status; E87.1 Hypo-osmolality and hyponatremia; I44.1 Atrioventricular block, second degree; E83.39 Other disorders of phosphorus metabolism; R00.8 Other abnormalities of heart beat; R42 Dizziness and giddiness; Z87.891 Personal history of nicotine dependence

== ENCOUNTER 2023-06-28 12:19 | Observation (INO) ==
--- NOTE | 2023-06-28 13:08 | Emergency Department Note ---
Impression & Plan Diplopia, Ataxia, Heart palpitations ED Provider Note NAME: SAMMIE CHINO AGE: 52 SEX: M : 1970 ARRIVES VIA: Walk-In INFORMANT: Patient, ED PROVIDER(S): Sammie Trujillo DO CHIEF COMPLAINT: Visual disturbance HPI: The patient is a 52-year-old male who presented to the emergency department for visual disturbance. The patient does have a history of irregular heartbeat as well as hypertension. The patient states he awoke this morning at approximately 1 AM and noticed he was having difficulty with his vision. He denies having any chest pain or difficulty breathing. He also feels off balance when he tries to walk. He does not have a history of stroke in the past. He does not take blood thinners. The patient was not seen by provider prior to coming to the emergency department. He came the emergency department for further evaluation. The patient denies having any fever or chills. He denies having any headache. ROS: See above HPI for pertinent positives & negatives. A total of 10 systems reviewed and were otherwise negative. PAST MEDICAL HISTORY: See Below PAST SURGICAL HISTORY: See Below FAMILY HISTORY: See Below SOCIAL HISTORY: See Below HOME MEDICATIONS: See Below ALLERGIES: See Below VITALS: See Below PHYSICAL EXAMINATION: GENERAL: Patient is awake alert in no acute distress patient is resting comfortably and showing no signs of anxiety EYES: The conjunctivae are clear. The pupils are round and reactive. EARS, NOSE, MOUTH AND THROAT: The nose is without any evidence of any deformity. Mucous membranes are moist. NECK: The neck is nontender and supple. RESPIRATORY: Normal respiratory effort is noted there is no evidence of wheezing rhonchi or rales CARDIOVASCULAR: Regular rate and rhythm noted there no murmurs rubs or gallops normal S1 normal S2. GASTROINTESTINAL: The abdomen is soft. Abdomen is nontender. MUSCULOSKELETAL/EXTREMITIES: There is no evidence of gross deformity full range of motion is noted in the hips and shoulders. SKIN: There is no obvious evidence of any rash. There are no petechiae, pallor or cyanosis noted. NEUROLOGIC: Patient is awake alert and oriented x3. Speech was clear. The patient has clear vision when he covers up either eye but with both eyes open he states he has a vertical double vision. Extraocular muscles are intact. MEDICAL DECISION MAKING: The patient is a 52-year-old male who presented to the emergency department with strokelike symptoms. He did present through triage. His blood pressure was very elevated and he was found to bradycardia. The patient was not made a stroke alert as his symptoms began approxi-1:00 this morning. He states he has been having trouble ambulating and feels though he is very off balance. The patient describes double vision which is only binocular. The patient did not have any focal neurologic deficits. He had an NIH of approximately 1 as documented by nursing. I discussed patient's laboratory and radiographic studies with him. The patient did not appear to have any signs of dysrhythmia on cardiac monitoring although he did complain of palpitations last evening. The patient did not have any signs of vessel occlusion or abnormality on CT without contrast. Given the patient's findings I do feel that he may be a better candidate for inpatient management. [facility] have agreed to evaluate the patient in the emergency department for further management and disposition. Triage Nursing notes reviewed. Prior medical records reviewed Vital Signs: reviewed and remarkable for elevated blood pressure. Differential diagnosis: Infection, dehydration, metabolic abnormality, hypo/hyperglycemia, electrolyte disturbance, anemia, hypoxia, cardiac sources, intracerebral event, toxicologic, neurologic, as well as other pathologies. ER treatment provided: See below Diagnostics interpreted by me: ECG: EKG was obtained in the emergency department. My interpretation is sinus bradycardia at 53 bpm. First-degree AV block was noted. Right bundle branch block pattern was noted. This was compared to a tracing of May 12, 2022. Sinus bradycardia has replaced Mobitz type I second-degree heart block. Otherwise no significant changes were noted. Cardiac Monitoring: An order was placed for continuous cardiac monitoring. The monitor shows a rate of sinus bradycardia at 56 bpm. Laboratory studies: As stated above and show below. Imaging studies: See below. Radiographic imaging was reviewed by myself Consultation(s): I discussed this case with Cr[facility]. Past Med/Surg History Medical History (Updated 06/28/23 @ 15:37 by Sammie Trujillo DO) Hypophosphatemia Hyponatremia Surgical History (Updated 06/28/23 @ 15:30 by Criss Schulz PA-C) History of orchiectomy History of vasectomy Hx of shoulder surgery Social History Smoking Status: Former smoker Tobacco Type: Cigarettes Do You Dip or Chew Tobacco: Yes; Hx Alcohol Use: Yes Alcohol type: beer Hx Substance Use: No Preferred Language: Tajik Communication Ability: Effective Scre[employer] Tool [employer]ter Required: No Beliefs That Will Affect Care: None Current Living Situation: Alone Feels Safe at Home: Yes Assistive Devices: None Allergies Allergies Allergy/AdvReac Type Severity Reaction Status Date / Time adhesive tape AdvReac SKIN TEARS Unverified 06/28/23 15:29 Home Meds Home Medications Medication Instructions Recorded Confirmed losartan 100 mg tablet 100 mg PO DAILY 06/28/23 06/28/23 Results & Data (ED) Vital Signs Vital Signs - 24 hr 06/28/23 12:23 06/28/23 13:09 06/28/23 13:30 Temperature 37.3 C Temperature Source Temporal Artery Scan Pulse Rate 78 50 L Pulse Rate [Finger] 50 L Pulse Rhythm [Finger] Regular Pulse Strength [Finger] Respiratory Rate 16 18 18 Respiratory Effort / Characteristics Non-Labored Spontaneous Non-Labored Spontaneous Respiratory Depth Normal Normal Respiratory Pattern Regular Blood Pressure 195/77 H 169/83 H Blood Pressure [Left Arm] 154/66 H Blood Pressure Mean 116 122 Blood Pressure Mean [Left Arm] 95 Blood Pressure Position [Left Arm] Sitting Pulse Oximetry 94 95 97 Oxygen Delivery Method Room Air Room Air Sepsis Recent Fever Within 48 Hours No Sepsis New/Unexplained Change in Mental Status No Sepsis Action Taken by Nursing No Action Required 06/28/23 15:12 06/28/23 15:31 Temperature Temperature Source Pulse Rate 60 Pulse Rate [Finger] 56 L Pulse Rhythm [Finger] Regular Pulse Strength [Finger] Normal Respiratory Rate 18 18 Respiratory Effort / Characteristics Non-Labored Spontaneous Respiratory Depth Normal Respiratory Pattern Regular Blood Pressure 146/62 H Blood Pressure [Left Arm] 148/71 H Blood Pressure Mean 90 Blood Pressure Mean [Left Arm] 96 Blood Pressure Position [Left Arm] Pulse Oximetry 97 96 Oxygen Delivery Method Room Air Sepsis Recent Fever Within 48 Hours Sepsis New/Unexplained Change in Mental Status Sepsis Action Taken by Alf Medications Current Medication List: was personally reviewed by me Laboratory Data Attestation: I reviewed the patient's lab results. 06/28/23 12:44 06/28/23 12:44 Lab Results 06/28/23 Range/Units 12:44 WBC 6.61 (4.8-10.8) K/ul RBC 4.87 (4.70-6.10) M/uL Hgb 14.6 (14.0-18.0) g/dl Hct 42.3 (42.0-52.0) % MCV 86.9 (80.0-100.0) fL MCH 30.0 (25.0-34.0) pg MCHC 34.5 (32.0-36.0) g/dL RDW Std Deviation 39.1 (36.4-46.3) fL RDW Coeff of Tova 12.3 (11.5-14.5) % Plt Count 156 (130-400) K/uL MPV 10.9 (9.4-12.4) fL Immature Gran % (Auto) 0.3 % Neut % (Auto) 83.6 % Lymph % (Auto) 7.1 % [place] % (Auto) 6.4 % Eos % (Auto) 2.0 % Baso % (Auto) 0.6 % Neut # (Auto) 5.53 (1.40-6.50) K/uL Lymph # (Auto) 0.47 L (1.20-3.40) K/uL [place] # (Auto) 0.42 (0.11-0.59) K/uL Eos # (Auto) 0.13 (0.00-0.50) K/uL Baso # (Auto) 0.04 (0.00-0.20) K/uL Immature Gran # (Auto) 0.02 (0.01-0.20) K/uL PT 11.1 (9.0-12.0) Seconds INR 1.0 (0.9-1.1) APTT 26 (21-31) Seconds PTT Ratio 0.9 Sodium 136 (136-145) mmol/L Potassium 4.0 (3.5-5.1) mmol/L Chloride 104 (98-107) mmol/L Carbon Dioxide 23 (21-32) mmol/L Anion Gap 9 (3-11) BUN 15 (6-23) mg/dl Creatinine 1.18 (0.6-1.4) mg/dl Est Cr Clr Drug Dosing 106.2 ml/min Est GFR ( Amer) 81.2 ml/min Est GFR (Non-Af Amer) 70.0 ml/min BUN/Creatinine Ratio 12.7 (10-20) Glucose 202 H (70-99(Fasting)) mg/dl Calcium 9.5 (8.6-10.3) mg/dl Magnesium 2.0 (1.7-2.4) mg/dl Total Bilirubin 0.7 (0.2-1.0) mg/dl AST 39 (13-39) U/L ALT 56 H (7-52) U/L Alkaline Phosphatase 33 L (34-104) U/L Troponin I High Sens 15.9 (0-20) pg/ml Total Protein 7.3 (6.0-8.3) gm/dl Albumin 4.4 (3.4-5.0) gm/dl Globulin 2.9 (2.5-4.0) gm/dl Albumin/Globulin Ratio 1.5 (0.9-2) Administered Medications Discontinued Medications Amlodipine Besylate (Amlodipine Besylate 5 Mg Tab) 5 mg PO NOW ONE Stop: 06/28/23 15:13 Last Admin: 06/28/23 15:30 Dose: 5 mg Documented By: ERIC Ioversol (Optiray 320 125ml) 118 ml IV ONCE ONE Stop: 06/28/23 14:18 Last Admin: 06/28/23 14:18 Dose: 118 ml Documented By: [facility]MA Imaging Data Attestation: I personally reviewed and interpreted this imaging study as follows: My Impression: 1 view chest x-ray was obtained in the emergency department. My interpretation is no free air or definite infiltrate, final report below. CT of the brain was obtained in the emergency department. My interpretation is no intracranial hemorrhage or mass effect, final report below. Radiologist's Impression: Chest X-Ray 06/28/23 12:25 XR chest 1V not portable CLINICAL HISTORY: neuro deficit, acute stroke suspected COMPARISON STUDY: Chest radiograph May 12, 2022. FINDINGS: Lung volumes are normal. Lungs are clear. There is no pneumothorax or pleural effusion. Mild cardiomegaly is unchanged. Mediastinal contours are normal. There is no evidence for pulmonary edema. IMPRESSION: No acute cardiopulmonary findings. ACT 112: Negative or not required by law. Electronically signed by: Won Obrien M.D. 06/28/2023 1:[address] 06/28/23 12:25 CT SCAN OF THE BRAIN WITHOUT IV CONTRAST CLINICAL HISTORY: Neurological deficit. Stroke like symptoms. COMPARISON STUDY: CT of the brain dated 08/10/2021. TECHNIQUE: Unenhanced axial CT scan of the brain is performed from the vertex to the skull base. A dose lowering technique was utilized adhering to the principles of ALARA. FINDINGS: Brain parenchyma: There is minimal microangiopathic disease. There is no hemorrhage, mass effect, or evidence of acute territorial ischemia by CT criteria. Baptiste-white matter differentiation is preserved. No extra-axial fluid collection is seen. Ventricles, sulci, cisterns: Normal in configuration. Intracranial vasculature: There is atherosclerotic calcification of the cavernous carotid arteries. Calvarium: Unremarkable. Sinuses and mastoids: There is moderate mucosal thickening within the ethmoid and left maxillary sinuses. Mild mucosal thickening is noted in the sphenoid and frontal sinuses. The mastoid air cells are well pneumatized. Orbits: The bony orbits are grossly intact. IMPRESSION: There is no hemorrhage, mass effect, or evidence of acute territorial ischemia by CT criteria. ACT 112: Negative or not required by law. Electronically signed by: Edgard Hunt M.D. 06/28/2023 2:42 PM Head CTA 06/28/23 12:25 CTA ANGIOGRAPHY OF THE HEAD CLINICAL HISTORY: neuro deficit, acute stroke suspected COMPARISON STUDY: Head CT August 10, 2021. TECHNIQUE: Helical axial images of the head were obtained following uneventful intravenous administration of 118 cc of Optiray. Sagittal and coronal reconstructions were viewed as well as maximal intensity projections on an independent 3-D workstation. Automated exposure control was utilized for the study. A dose lowering technique was utilized adhering to the principles of ALARA. CT DOSE: 1078.79 mGy.cm FINDINGS: No acute intracranial hemorrhage, midline shift or mass effect is present. Ventricular system is normal. Basal cisterns are patent. There are no extra-axial collections. Moderate polypoid mucosal thickening of the left maxillary, ethmoid and left sphenoid sinuses is similar to prior CT of August 10, 2021. The bilateral M1, M2, A1 and A2 segments are patent. There is no central vessel occlusion. The posterior circulation is intact. No intracranial aneurysm is present. There is no dissection within the intracranial vessels. Posterior circulation is intact. Major dural sinuses are grossly patent. IMPRESSION: Unremarkable CTA of the head. No large vessel occlusion. No intracranial aneurysm. ACT 112: Negative or not required by law. Electronically signed by: Won Obrien M.D. 06/28/2023 2:38 PM Neck CTA 06/28/23 12:25 CT ANGIOGRAM OF THE NECK CLINICAL HISTORY: Neurological deficit. Strokelike symptoms. COMPARISON STUDY: No priors. TECHNIQUE: Following the IV administration of 118 of Optiray 320, CT angiogram of the neck was performed from the aortic arch to the skull base. Images are reviewed in the axial, sagittal, and coronal planes. 3-D MIPS images are created and assessed. IV contrast was administered without complication. All measurements were calculated based on NASCET criteria. A dose lowering technique was utilized adhering to the principles of ALARA. FINDINGS: Thoracic aorta: Visualized portions of the thoracic aorta are normal in caliber. The aortic arch demonstrates standard 3-vessel anatomy. Right carotid arterial system: The right common carotid artery is widely patent, as are the right internal and external carotid arteries. Left carotid arterial system: The left common carotid artery is widely patent, as are the left internal and external carotid arteries. Vertebral arteries: The vertebral arteries are widely patent bilaterally and codominant. Subclavian arteries: Widely patent bilaterally. Intracranial vasculature: The visualized intracranial vessels at the skull base are patent. Jugular veins: Widely patent bilaterally. Brain parenchyma: The visualized brain parenchyma the skull base is within normal limits. Lung apices: Partially visualized upper lobe lung parenchyma appears clear. Soft tissues: The visualized pharyngeal soft tissues are normal in appearance noting angiographic phase technique. The oropharyngeal airway appears widely patent. The salivary and thyroid glands are normal in appearance. No cervical lymphadenopathy is seen. Skeletal structures: The visualized calvarium at the skull base appears intact. The imaged cervical spine is maintained noting multilevel spondylosis. Sinuses and mastoids: There is moderate mucosal thickening in the left maxillary antrum and the visualized ethmoid sinuses. Mucosal thickening is also seen in the sphenoid sinuses. The mastoid air cells are well pneumatized IMPRESSION: Unremarkable CT angiogram of the neck. ACT 112: Negative or not required by law. Electronically signed by: Edgard Hunt M.D. 06/28/2023 2:38 PM Discharge Plan Visit Data Chief Complaint: TIA Symptoms Stated Complaint: PALPATATIONS BLURRY VISION, BALANCE IS OFF ED Provider: Sammie Trujillo Discharge Problem: Diplopia, Ataxia, Heart palpitations Patient Disposition: Being Evaluated by Hospitalist Forms Stand Alone Forms: [facility] Prescriptions Prescriptions: No Action losartan 100 mg tablet 100 mg PO DAILY Referrals Referrals: PCP,NO [Physician] -
--- NOTE | 2023-06-28 13:08 | XRay Report ---
XR chest 1V not portable CLINICAL HISTORY: neuro deficit, acute stroke suspected COMPARISON STUDY: Chest radiograph May 12, 2022. FINDINGS: Lung volumes are normal. Lungs are clear. There is no pneumothorax or pleural effusion. Mil d cardiomegaly is unchanged. Mediastinal contours are normal. There is no evidence for pulmonary arturo a. IMPRESSION: No acute cardiopulmonary findings. ACT 112: Negative or not required by law. Electronically signed by: Won Obrien M.D. 06/28/2023 1:07 PM
[2023-06-28 13:34] LABS: Basophils # (auto) 0.04 K/uL (0.00-0.20); Basophils % (auto) 0.6 %; Eosinophils # (auto) 0.13 K/uL (0.00-0.50); Hematocrit (blood only) 42.3 % (42.0-52.0); Hemoglobin 14.6 g/dl (14.0-18.0); Immature Granulocytes # (auto) 0.02 K/uL (0.01-0.20); Immature Granulocytes % (auto) 0.3 %; Lymphocytes # (auto) 0.47 K/uL (1.20-3.40); Lymphocytes % (auto) 7.1 %; Mean Corpuscular Hgb Conc 34.5 g/dL (32.0-36.0); Mean Corpuscular Volume 86.9 fL (80.0-100.0); Mean Platelet Volume 10.9 fL (9.4-12.4); Monocytes # (auto) 0.42 K/uL (0.11-0.59); Monocytes % (auto) 6.4 %; Neutrophils # (auto) 5.53 K/uL (1.40-6.50); Neutrophils % (auto) 83.6 %; Platelet Count 156 K/uL (130-400); RDW Coefficient of Variation 12.3 % (11.5-14.5); RDW Standard Deviation 39.1 fL (36.4-46.3); Red Blood Count 4.87 M/uL (4.70-6.10); White Blood Count 6.61 K/ul (4.8-10.8)
[2023-06-28 13:53] LABS: Albumin Globulin Ratio 1.5 (0.9-2); Albumin Level 4.4 gm/dl (3.4-5.0); BUN Creatinine Ratio 12.7 (10-20); Bilirubin,Total 0.7 mg/dl (0.2-1.0); Calcium 9.5 mg/dl (8.6-10.3); Creatinine Clr Calc Pharmacy 106.2 ml/min; Est GFR (African American) 81.2 ml/min; Globulin 2.9 gm/dl (2.5-4.0); Total Protein 7.3 gm/dl (6.0-8.3)
[2023-06-28 13:58] LABS: Troponin I High Sensitivity 15.9 pg/ml (0-20)
--- NOTE | 2023-06-28 13:59 | Electrocardiogram Report ---
Test Reason : Blood Pressure : / mmHG Vent. Rate : 053 BPM Atrial Rate : 053 BPM P-R Int : 214 ms QRS Dur : 154 ms QT Int : 428 ms P-R-T Axes : 002 071 005 degrees QTc Int : 401 ms Sinus bradycardia with 2:1 Second degree A-V block Right bundle branch block with repolarization abnormality Abnormal ECG When compared with ECG of 12-MAY-2022 09:20, Sinus rhythm is no longer with 2nd degree A-V block (Mobitz I) Reconfirmed by David Walton ([id number]) on 06/29/2023 10:35:20 AM Referred By: Confirmed By:David Walton
[2023-06-28 14:10] LABS: Partial Thromboplastin Ratio 0.9; Partial Thromboplastin Time 26 Seconds (21-31); Prothrombin Time 11.1 Seconds (9.0-12.0)
[2023-06-28] MEDS: OPTIRAY 320 125ml IV ONE (14:18)
--- NOTE | 2023-06-28 14:40 | CT Scan Report ---
CT ANGIOGRAM OF THE NECK CLINICAL HISTORY: Neurological deficit. Strokelike symptoms. COMPARISON STUDY: No priors. TECHNIQUE: Following the IV administration of 118 of Optiray 320, CT angiogram of the neck was perfor med from the aortic arch to the skull base. Images are reviewed in the axial, sagittal, and coronal p lanes. 3-D MIPS images are created and assessed. IV contrast was administered without complication. A ll measurements were calculated based on NASCET criteria. A dose lowering technique was utilized adh ering to the principles of ALARA. FINDINGS: Thoracic aorta: Visualized portions of the thoracic aorta are normal in caliber. The aortic arch demo nstrates standard 3-vessel anatomy. Right carotid arterial system: The right common carotid artery is widely patent, as are the right int ernal and external carotid arteries. Left carotid arterial system: The left common carotid artery is widely patent, as are the left information technology internship al and external carotid arteries. Vertebral arteries: The vertebral arteries are widely patent bilaterally and codominant. Subclavian arteries: Widely patent bilaterally. Intracranial vasculature: The visualized intracranial vessels at the skull base are patent. Jugular veins: Widely patent bilaterally. Brain parenchyma: The visualized brain parenchyma the skull base is within normal limits. Lung apices: Partially visualized upper lobe lung parenchyma appears clear. Soft tissues: The visualized pharyngeal soft tissues are normal in appearance noting angiographic pha se technique. The oropharyngeal airway appears widely patent. The salivary and thyroid glands are nor mal in appearance. No cervical lymphadenopathy is seen. Skeletal structures: The visualized calvarium at the skull base appears intact. The imaged cervical s pine is maintained noting multilevel spondylosis. Sinuses and mastoids: There is moderate mucosal thickening in the left maxillary antrum and the visua lized ethmoid sinuses. Mucosal thickening is also seen in the sphenoid sinuses. The mastoid air cells are well pneumatized IMPRESSION: Unremarkable CT angiogram of the neck. ACT 112: Negative or not required by law. Electronically signed by: Edgard Hunt M.D. 06/28/2023 2:38 PM
--- NOTE | 2023-06-28 14:40 | CT Scan Report ---
CTA ANGIOGRAPHY OF THE HEAD CLINICAL HISTORY: neuro deficit, acute stroke suspected COMPARISON STUDY: Head CT August 10, 2021. TECHNIQUE: Helical axial images of the head were obtained following uneventful intravenous administr ation of 118 cc of Optiray. Sagittal and coronal reconstructions were viewed as well as maximal inten sity projections on an independent 3-D workstation. Automated exposure control was utilized for the study. A dose lowering technique was utilized adhering to the principles of ALARA. CT DOSE: 1078.79 mGy.cm FINDINGS: No acute intracranial hemorrhage, midline shift or mass effect is present. Ventricular syst em is normal. Basal cisterns are patent. There are no extra-axial collections. Moderate polypoid muco erika thickening of the left maxillary, ethmoid and left sphenoid sinuses is similar to prior CT of Mar 2021. The bilateral M1, M2, A1 and A2 segments are patent. There is no central vessel occlusio n. The posterior circulation is intact. No intracranial aneurysm is present. There is no dissection w ithin the intracranial vessels. Posterior circulation is intact. Major dural sinuses are grossly donnelly nt. IMPRESSION: Unremarkable CTA of the head. No large vessel occlusion. No intracranial aneurysm. ACT 112: Negative or not required by law. Electronically signed by: Won Obrien M.D. 06/28/2023 2:38 PM
--- NOTE | 2023-06-28 14:44 | CT Scan Report ---
CT SCAN OF THE BRAIN WITHOUT IV CONTRAST CLINICAL HISTORY: Neurological deficit. Stroke like symptoms. COMPARISON STUDY: CT of the brain dated 08/10/2021. TECHNIQUE: Unenhanced axial CT scan of the brain is performed from the vertex to the skull base. A d ose lowering technique was utilized adhering to the principles of ALARA. FINDINGS: Brain parenchyma: There is minimal microangiopathic disease. There is no hemorrhage, mass effect, or evidence of acute territorial ischemia by CT criteria. Baptiste-white matter differentiation is preserved . No extra-axial fluid collection is seen. Ventricles, sulci, cisterns: Normal in configuration. Intracranial vasculature: There is atherosclerotic calcification of the cavernous carotid arteries. Calvarium: Unremarkable. Sinuses and mastoids: There is moderate mucosal thickening within the ethmoid and left maxillary sinu ses. Mild mucosal thickening is noted in the sphenoid and frontal sinuses. The mastoid air cells are well pneumatized. Orbits: The bony orbits are grossly intact. IMPRESSION: There is no hemorrhage, mass effect, or evidence of acute territorial ischemia by CT odette patel. ACT 112: Negative or not required by law. Electronically signed by: Edgard Hunt M.D. 06/28/2023 2:42 PM
[2023-06-28] MEDS: amLODIPine BESYLATE 5 MG TAB PO ONE (15:30)
[2023-06-28 15:49] LABS: Appearance Urine Clear (Clear); Bilirubin Urine Negative (Negative); Blood Urine Negative (Negative); Color Urine Yellow; Glucose Urine UA 2+ (Negative); Ketones Urine Trace (Negative); Leukocyte Esterase Urine Negative (Negative); Nitrite Urine Negative (Negative); Protein Urine Negative (Negative); Specific Gravity Urine > 1.045 (1.000-1.030); Urobilinogen Urine Negative (Negative)
[2023-06-28] MEDS: ASPIRIN 81 MG CHEW PO STA (15:50)
--- NOTE | 2023-06-28 16:28 | History & Physical Report ---
Date of Service June 28, 2023 Assessment & Plan (1) Stroke-like symptoms: (2) Abnormal ECG: (3) Bradycardia: (4) Hypertension: (5) JANE (obstructive sleep apnea): (6) Dysequilibrium: (7) Tobacco use: Plan This is a 52-year-old male who has a significant past medical history HTN, HLD, untreated sleep apnea, tobacco use disorder who presents to ED secondary to visual change and off balance x 1 day. Stroke like sx pt reports "fuzzy vision" and ataxia starting at 1:45 a.m., lasted 2-3 hours; however fuzzy vision persisted also c/o posterior ROYAL that is unusual for him Head CT and CTA negative admit for stroke w/u obtain MRI echocardiogram lipid panel, a1c in a.m. consult neuro PT/OT/ST ASA 324mg ordered in ED Abnormal ECG Bradycardia request cardiology consult, jose rafael for continuity of care previous RBBB, appears to have worsened ecg from 2021 ? if setting of untreated JANE echo ordered pt reports palpitations in evening HTN appears uncontrolled at baseline pt on losartan only, may require second agent for now allow for permissive HTN until cva r/o JANE untreated pt told he needed surgery and did not want to go through this has never been tested for device recommend repeat sleep study as outpatient Hyperglycemia suspect T2DM a1c in a.m. will obtain accu checks but will not order novolog until consistent elevations Elevated ALT no abd pain repeat in a.m. DVT Ppx: encourage ambulation FULL CODE PCP: Mikal Pt was seen and examined in collaboration with Dr. Jacobson, please see addendum A total of 76 minutes was spent coordinating, documenting, and providing care for this patient excluding time spent in the performance of separately billed services. This included personally viewing all current laboratories and imaging studies, medication reconciliation, outpatient chart review, and discussion with specialists. History of Present Illness Chief Complaint: visual change and off balance x 1 day. Primary Care Provider: Laron Ren MD This is a 52-year-old male who has a significant past medical history HTN, HLD, untreated sleep apnea, tobacco use disorder who presents to ED secondary to visual change and off balance x 1 day. Friend is at bedside and helps elicit history. He states he woke up at approximately 1 30-1 40 5 AM when he noticed his vision to be, "fuzzy." He states when he would, when I his symptoms would go away. He denies any josé miguel diplopia or hemianopsia symptoms. He further states when he woke up this morning he had a significant posterior headache. He denies any photophobia or phonophobia at that time. He denies any previous history of migraines and states that he typically does not have a headache. In association with visual changes he states that he had difficulty walking when getting up to go to the bathroom. This lasted approximately 2 to 3 hours. He states he had to hold onto the wall to be able to walk without falling. 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 He also states that he sleeps very poorly and feels like his headache is related to his significant lack of sleep. Friend at bedside states that he has slept poorly for a long time. He does have prior history of sleep apnea that is untreated. He states he was told that he requires surgery. He has never been tested for sleep device. He also states at night he occasionally gets heart palpitations. He denies any recent illness, fever, chills, sweats, lightheadedness, dizziness, chest pain, shortness of breath, cough, nausea, vomit, abdominal pain, change in bowel or urinary habits. He further denies any unilateral weakness, speech changes or numbness or tingling. He denies any difficulty swallowing. Appetite is normal. He does have a history of hypertension and has been prescribed losartan which he has been on for the last 2 to 3 months. He admits to being compliant with this. He does not take his blood pressure at home as he feels this is not accurate. Friend at bedside states his blood pressure, "runs too high." In ED he underwent stroke workup. Allergies Allergy/AdvReac Type Severity Reaction Status Date / Time adhesive tape AdvReac Intermediate SKIN TEARS Verified 06/28/23 15:37 Home Medications Medication Instructions Recorded Confirmed Type losartan 100 mg tablet 100 mg PO DAILY 06/28/23 06/28/23 History Past Med/Surg History Medical History (Updated 06/28/23 @ 20:50 by Marielena Jacobson DO) Tobacco use former smoker, does chew JANE (obstructive sleep apnea) HLD (hyperlipidemia) Hypertension Hypophosphatemia Hyponatremia Surgical History (Updated 06/28/23 @ 15:30 by Criss Schulz PA-C) History of orchiectomy History of vasectomy Hx of shoulder surgery Family History Denies family history of Stroke Social History Smoking Status: Former smoker Tobacco Type: Smokeless Tobacco (Dip or Chew) Second Hand Exposure: No; Do You Dip or Chew Tobacco: Yes; Tobacco Cessation Education Requested by Patient: No Hx Alcohol Use: No Hx Substance Use: No Preferred Language: Cantonese Malaysian Communication Ability: Effective Customer Security Clerk Required: No Beliefs That Will Affect Care: None Current Living Situation: Spouse Other Information That Helps Us Care for You: No Feels Safe at Home: Yes Safety Concerns: Feels Safe At This Time Assistive Devices: None Review of Systems Review of Systems: All systems reviewed & are unremarkable except as noted in HPI & below Physical Exam Physical Exam: Constitutional: WD/WN, obese, M, vitals as above, NAD, sitting up in bed, pleasant, conversing easily Head: Normocephalic, Atraumatic Eyes: PERRL, conjunctivae normal, anicteric sclerae ENMT: external ear and nose normal, oropharynx normal Neck: trachea midline, no thyromegaly normal visual inspection Respiratory: normal respiratory effort, lungs clear to auscultation, no wheeze, rales, rhonchi. Normal insp/exp effort, no accessory muscle use Cardiovascular: RRR, no murmur, no edema Vessels: no JVD or carotid bruit Chest: normal inspection of chest Abdomen: protuberant abd, normal bowel sounds, soft, nontender, no hepatosplenomegaly Musculoskeletal: no cyanosis or clubbing, extremities motor strength 5/5 Skin: no rashes, warm and dry normal turgor Neurologic: PERRL, EOMI, accommodation nl, no face palsy, no dysarthria CN's II-XI intact bilaterally and moves all extremities Psychiatric: A+Ox3, euthymic affect Lymphatic: no cervical or axillary lymphadenopathy : deferred Results & Data Results & Data Vital Signs (Past 12 Hours) Vital Signs Temp Pulse Pulse Resp BP BP Pulse Ox 06/28/23 16:08 62 06/28/23 15:31 56 L 18 148/71 H 96 06/28/23 15:12 60 18 146/62 H 97 06/28/23 13:30 50 L 18 169/83 H 97 06/28/23 13:09 50 L 18 154/66 H 95 06/28/23 12:23 37.3 C 78 16 195/77 H 94 O2 Del Method 06/28/23 16:08 06/28/23 15:31 Room Air 06/28/23 15:12 06/28/23 13:30 06/28/23 13:09 Room Air 06/28/23 12:23 Room Air Laboratory Results I have independently reviewed and interpreted patient's admitting labs including CBC, CMP, PTT, PT/INR, mag and troponin. Diagnostic Findings Chest X-Ray 06/28/23 12:25 XR chest 1V not portable CLINICAL HISTORY: neuro deficit, acute stroke suspected COMPARISON STUDY: Chest radiograph May 12, 2022. FINDINGS: Lung volumes are normal. Lungs are clear. There is no pneumothorax or pleural effusion. Mild cardiomegaly is unchanged. Mediastinal contours are normal. There is no evidence for pulmonary edema. IMPRESSION: No acute cardiopulmonary findings. ACT 112: Negative or not required by law. Electronically signed by: Won Obrien M.D. 06/28/2023 1:[address] 06/28/23 12:25 CT SCAN OF THE BRAIN WITHOUT IV CONTRAST CLINICAL HISTORY: Neurological deficit. Stroke like symptoms. COMPARISON STUDY: CT of the brain dated 08/10/2021. TECHNIQUE: Unenhanced axial CT scan of the brain is performed from the vertex to the skull base. A dose lowering technique was utilized adhering to the principles of ALARA. FINDINGS: Brain parenchyma: There is minimal microangiopathic disease. There is no hemorrhage, mass effect, or evidence of acute territorial ischemia by CT criteria. Baptiste-white matter differentiation is preserved. No extra-axial fluid collection is seen. Ventricles, sulci, cisterns: Normal in configuration. Intracranial vasculature: There is atherosclerotic calcification of the cavernous carotid arteries. Calvarium: Unremarkable. Sinuses and mastoids: There is moderate mucosal thickening within the ethmoid and left maxillary sinuses. Mild mucosal thickening is noted in the sphenoid and frontal sinuses. The mastoid air cells are well pneumatized. Orbits: The bony orbits are grossly intact. IMPRESSION: There is no hemorrhage, mass effect, or evidence of acute territorial ischemia by CT criteria. ACT 112: Negative or not required by law. Electronically signed by: Edgard Hunt M.D. 06/28/2023 2:42 PM Head CTA 06/28/23 12:25 CTA ANGIOGRAPHY OF THE HEAD CLINICAL HISTORY: neuro deficit, acute stroke suspected COMPARISON STUDY: Head CT August 10, 2021. TECHNIQUE: Helical axial images of the head were obtained following uneventful intravenous administration of 118 cc of Optiray. Sagittal and coronal reconstructions were viewed as well as maximal intensity projections on an independent 3-D workstation. Automated exposure control was utilized for the study. A dose lowering technique was utilized adhering to the principles of ALARA. CT DOSE: 1078.79 mGy.cm FINDINGS: No acute intracranial hemorrhage, midline shift or mass effect is present. Ventricular system is normal. Basal cisterns are patent. There are no extra-axial collections. Moderate polypoid mucosal thickening of the left maxillary, ethmoid and left sphenoid sinuses is similar to prior CT of August 10, 2021. The bilateral M1, M2, A1 and A2 segments are patent. There is no central vessel occlusion. The posterior circulation is intact. No intracranial aneurysm is present. There is no dissection within the intracranial vessels. Posterior circulation is intact. Major dural sinuses are grossly patent. IMPRESSION: Unremarkable CTA of the head. No large vessel occlusion. No intracranial aneurysm. ACT 112: Negative or not required by law. Electronically signed by: Won Obrien M.D. 06/28/2023 2:38 PM Neck CTA 06/28/23 12:25 CT ANGIOGRAM OF THE NECK CLINICAL HISTORY: Neurological deficit. Strokelike symptoms. COMPARISON STUDY: No priors. TECHNIQUE: Following the IV administration of 118 of Optiray 320, CT angiogram of the neck was performed from the aortic arch to the skull base. Images are reviewed in the axial, sagittal, and coronal planes. 3-D MIPS images are created and assessed. IV contrast was administered without complication. All measurements were calculated based on NASCET criteria. A dose lowering technique was utilized adhering to the principles of ALARA. FINDINGS: Thoracic aorta: Visualized portions of the thoracic aorta are normal in caliber. The aortic arch demonstrates standard 3-vessel anatomy. Right carotid arterial system: The right common carotid artery is widely patent, as are the right internal and external carotid arteries. Left carotid arterial system: The left common carotid artery is widely patent, as are the left internal and external carotid arteries. Vertebral arteries: The vertebral arteries are widely patent bilaterally and codominant. Subclavian arteries: Widely patent bilaterally. Intracranial vasculature: The visualized intracranial vessels at the skull base are patent. Jugular veins: Widely patent bilaterally. Brain parenchyma: The visualized brain parenchyma the skull base is within normal limits. Lung apices: Partially visualized upper lobe lung parenchyma appears clear. Soft tissues: The visualized pharyngeal soft tissues are normal in appearance noting angiographic phase technique. The oropharyngeal airway appears widely patent. The salivary and thyroid glands are normal in appearance. No cervical lymphadenopathy is seen. Skeletal structures: The visualized calvarium at the skull base appears intact. The imaged cervical spine is maintained noting multilevel spondylosis. Sinuses and mastoids: There is moderate mucosal thickening in the left maxillary antrum and the visualized ethmoid sinuses. Mucosal thickening is also seen in the sphenoid sinuses. The mastoid air cells are well pneumatized IMPRESSION: Unremarkable CT angiogram of the neck. ACT 112: Negative or not required by law. Electronically signed by: Edgard Hunt M.D. 06/28/2023 2:38 PM Medications Administered Medication List Discontinued Medications Amlodipine Besylate (Amlodipine Besylate 5 Mg Tab) 5 mg PO NOW ONE Stop: 06/28/23 15:13 Last Admin: 06/28/23 15:30 Dose: 5 mg Documented By: ERIC Aspirin (Aspirin 81 Mg Chew) 324 mg PO NOW STA Stop: 06/28/23 15:36 Last Admin: 06/28/23 15:50 Dose: 324 mg Documented By: ERIC Ioversol (Optiray 320 125ml) 118 ml IV ONCE ONE Stop: 06/28/23 14:18 Last Admin: 06/28/23 14:18 Dose: 118 ml Documented By: UMA ECG Additional Comments: I have independently reviewed and interpreted patient's admitting EKG which revealed: 53 bpm, rbbb with repolarization, St depression V5-6 compared to COVID-19 Results Results COVID-19 Adm Lab Results: RBC 4.87 M/uL (4.70-6.10) 06/28/23 WBC 6.61 K/ul (4.8-10.8) 06/28/23 Hgb 14.6 g/dl (14.0-18.0) 06/28/23 Hct 42.3 % (42.0-52.0) 06/28/23 Plt Count 156 K/uL (130-400) 06/28/23 Neutrophils (%) (Auto) 83.6 % 06/28/23 Lymphocytes (%) (Auto) 7.1 % 06/28/23 Monocytes # (Auto) 0.42 K/uL (0.11-0.59) 06/28/23 Eosinophils # (Auto) 0.13 K/uL (0.00-0.50) 06/28/23 Immature Granulocyte % (Auto) 0.3 % 06/28/23 Neutrophils # (Auto) 5.53 K/uL (1.40-6.50) 06/28/23 Lymphocytes # (Auto) 0.47 K/uL (1.20-3.40) L 06/28/23 Monocytes # (Auto) 0.42 K/uL (0.11-0.59) 06/28/23 Eosinophils # (Auto) 0.13 K/uL (0.00-0.50) 06/28/23 Basophils # (Auto) 0.04 K/uL (0.00-0.20) 06/28/23 Immature Granulocyte # (Auto) 0.02 K/uL (0.01-0.20) 4 Na 136 mmol/L (136-145) 06/28/23 K 4.0 mmol/L (3.5-5.1) 06/28/23 Cl 104 mmol/L (98-107) 06/28/23 CO2 23 mmol/L (21-32) 06/28/23 Anion Gap 9 (3-11) 06/28/23 BUN 15 mg/dl (6-23) 06/28/23 Creatinine 1.18 mg/dl (0.6-1.4) 06/28/23 BUN/Creatinine Ratio 12.7 (10-20) 06/28/23 Glucose Level 202 mg/dl (70-99(Fasting)) H 06/28/23 Ca 9.5 mg/dl (8.6-10.3) 06/28/23 Total Bilirubin 0.7 mg/dl (0.2-1.0) 06/28/23 AST/SGOT 39 U/L (13-39) 06/28/23 ALT/SGPT 56 U/L (7-52) H 06/28/23 Alkaline Phosphatase 33 U/L (34-104) L 06/28/23 Total Protein 7.3 gm/dl (6.0-8.3) 06/28/23 Albumin 4.4 gm/dl (3.4-5.0) 06/28/23 Globulin 2.9 gm/dl (2.5-4.0) 06/28/23 Albumin/Globulin Ratio 1.5 (0.9-2) 06/28/23 PTT 26 Seconds (21-31) 06/28/23 INR 1.0 (0.9-1.1) 06/28/23 Chest X-Ray 06/28/23 Code Status & VTE Plan Code Status FULL CODE VTE Prophylaxis Plan VTE Prophylaxis will be ordered: Yes Reason for no VTE drug order: Treatment not indicated Supervising Physician Co-Signing Physician Notes I have seen and examined the patient and have discussed the case with the provider above. I have reviewed the advanced practitioner's documentation, and I agree with, and take responsibility for that plan of care. 52 yo M presents with reports of awakening overnight with disequilibrium around 0100. He was unable to go back to sleep and reports having a posterior headache which radiated to the top of the skull, still present all day. He was unable to walk straight without holding onto a wall, and this lasted for hours. 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 Smokeless tobacco can is on the bedside table and he reports he has used this since he was a kid. Studies to date including a brain MRI are negative for intracranial abnormality. He does not report ear pain or fullness. His vision is blurry and he specifically reports that closing one eye or the other allows the blurriness to go away. He still has not gotten up to try and walk around and currently has a headache which is worse when he sits up. He was ok with the exam in a supine, semirecumbent position. He is obese, in NAD and mentating clearly. CN 2-12 are intact. PERRL, oral MMM. Normal strength and sensation throughout. DTR 2/4 on bilateral patella. Normal CV and pulmonary exam. Workup so far today has been unremarkable. He does have an elevated random glucose of 202 on labwork today and a very mild increase in ALT which is improved from prior check. Urine is co ncentrated with glucosuria present. Risk factors for diabetes are present and may be contributing to symptoms. Screening A1C and fasting lipids in am. With normal brain MRI, suspect this disequilibrium is related to the machine he is using at work. However, given the prominence of his symptoms, would appreciate neurology evaluating and rendering an opinion, also. I spent a total [id number] coordinating, documenting, and providing care for this patient excluding time spent in the performance of separately billed services. DO Kavon (4) Hypertension Hypertension type: unspecified Qualified Code(s): I10 - Essential (primary) hypertension
[2023-06-28] MEDS: GADOBUTROL 65ML VIAL IV ONE (17:03)
--- NOTE | 2023-06-28 17:44 | Magnetic Resonance Report ---
MRI OF THE BRAIN WITHOUT AND WITH IV CONTRAST CLINICAL HISTORY: Stroke. COMPARISON STUDY: Head CT and CTA of the head performed earlier today. TECHNIQUE: Utilizing a 1.5 Valerie magnet and dedicated coil, multiplanar, multiecho imaging of the br ain was performed pre and postcontrast administration. IV administration of 14 mL [address] contra st was uneventful. FINDINGS: There are no foci of restricted diffusion to suggest acute infarct. No acute intracranial h emorrhage, midline shift or mass effect is present. Ventricular system is unremarkable. Basal cistern s are patent. There are no extra-axial collections. There is no intracranial mass or pathologic enhan cement. A few small white matter T2 hyperintense foci suggest minimal small vessel disease. Calvarial signal is normal. Polypoid mucosal thickening within the sinuses is similar to CT of August 10, 2021. This is likely chronic. IMPRESSION: 1. No acute intracranial findings. 2. No intracranial mass or pathologic enhancement. ACT 112: Negative or not required by law. Electronically signed by: Won Obrien M.D. 06/28/2023 5:42 PM
[2023-06-28] MEDS ORDERED: ONDANSETRON INJ 2 MG/ML 2 ML VIAL IV PRN (18:03)
[2023-06-28] MEDS ORDERED: MAGNESIUM HYDROXIDE SUSP 30 ML UDC PO PRN (18:03)
[2023-06-28] MEDS ORDERED: ALUMINUM/MAGNESIUM SUSP 30 ML UDC PO PRN (18:03)
[2023-06-28] MEDS ORDERED: GLUCOSE 10 TAB/TUBE PO PRN (18:03)
[2023-06-28] MEDS ORDERED: GLUCAGON FOR INJ 1 MG VIAL SQ PRN (18:03)
[2023-06-28] MEDS ORDERED: CARBOHYDRATES FOR HYPOGLYCEMIA PO PRN (18:03)
[2023-06-28] MEDS ORDERED: PHARMACIST DISCHARGE MED REC CONSULT PRN (18:03)
[2023-06-28] MEDS ORDERED: GLUCOSE 40% GEL 15 GM TUBE PO PRN (18:03)
[2023-06-28] MEDS ORDERED: DEXTROSE 50% 50 ML SYRINGE IV PRN (18:03)
[2023-06-28] MEDS ORDERED: POLYETHYLENE (MIRALAX) 17 GM PACK PO PRN (18:03)
[2023-06-28] MEDS: ACETAMINOPHEN 325 MG TAB PO PRN (20:10)
--- OUTSIDE RECORDS SUMMARY | 2023-06-28 21:24 | External Medical Summary | Summary of Care ---
Author Name Unknown Organization [facility] Address [address] [place] [address] Phone [phone] Care Team Providers Care Traffic Maintenance Officer Name Role Phone William Ren MD Primary Care Provider [phone] Reason for Visit * Reason Onset Date Comments Advice 05/28/2023 Medication Refill 05/28/2023 Encounter Details Date Type Department Care Team (Late st Contact Info) Description 05/28/2023 Refill [facility] [address] [place] [address] William Ren MD [address] [place] [address] Allergies No known active allergiesdocumented as of this encounter (statuses as of 05/29/2023) Medications Medication Sig Dispensed Refills Start Date End Date Status hydroCHLOROthiaz mati (HYDRODIURIL) 12.5 MG CapsuleIndicatio ns:HTN, goal below 140/80 TAKE ONE CAPSULE BY MOUTH ONE TIME DAILY 30 Cap 0 12/25/2018 Active Additional Information Patient not taking.Reported on 05/01/2023 Losartan Potassium 100 MG Oral Tablet (Cozaar) Take 1 Tablet by mouth in the morning. 90 Tablet 3 05/29/2023 Active Losartan Potassium 100 MG Oral Tablet (Cozaar) Take 1 Tablet by mouth in the morning. 90 Tablet 3 05/01/2023 05/29/2023 Discontinue d(Refill) documented as of this encounter (statuses as of 05/29/2023) Active Problems Problem Noted Date Diagnosed Date HTN, goal below 140/80 06/18/2017 Chronic pain in testicle 06/18/2017 Dyslipidemia, goal LDL below 160 06/18/2017 Obstructive sleep apnea 08/02/2008 Overview: ICD-10 update of inactive term ADVANCE DIRECTIVE INFORMATION 10/18/2005 Overview: No, Advance Directive brochure given to patient at prior appointment. Tobacco use disorder 06/18/2000 documented as of this encounter (statuses as of 05/29/2023) Resolved Problems Problem Noted Date Diagnosed Date Resolved Date BMI 35-39 ISOLATED (SEE ACTUAL BMI) 11/01/2009 06/18/2017 Overview: Per Obesity Protocol, #19 Diverticulitis of colon 07/20/200905/22 Other specified pre-operative examination 07/08/2008 06/18/2017 Hypoglycemia 06/18/2017 documented as of this encounter (statuses as of 05/29/2023) Social History Tobacco Use Types Packs/Day Years Used Date Smoking Tobacco: Former Cigarettes 0.5 20 Passive Smoke Exposure: Past Smokeless Tobacco: Current Chew Comments:[place] Alcohol Use Standard Drinks/Week Comments Yes 0 (1 standard drink = 0.6 oz pur e alcohol) seldom PHQ-2 Answer Date Recorded PHQ-2 Score 0 03/24/2018 Hunger Vital Sign Answer Date Recorded Within the past 12 months, y ou worried that your food would run out before you got the money to buy more. Never true 01/24/20 23 Within the past 12 months, t he food you bought just didn't last and you didn't have money to get more. Never true 01/23/2023 Sex and Gender Information Value Date Recorded Sex Assigned at Male 01/23/2023 10:46 AM EDT Gender Identity Male 01/23/2023 10:46 AM EDT Sexual Orientation Straight 01/23/2023 10 :46 AM EDT Job Start Date Occupation Industry Not on file Not on file Not on file documented as of this encounter Miscellaneous Notes * Telephone Encounter - William Ren MD - 05/29/2023 5:18 PM ESTSigned Prescriptions: Disp Refills Losartan Potassium 100 MG Oral Tablet (Coz*90 Tab*3 Sig: Take 1 Tablet by mouth in the morning. Authorizing Provider: WILLIAM REN * Telephone Encounter - Shari Hinojosa OSA - 05/29/2023 5:08 PM EST LMOM for patient to call to schedule a b/p check with nurse. 05/29/2023 * Telephone Encounter - Maria Victoria Hardin LPN - 05/29/2023 3:18 PM EST Did you pend patient's preferred pharmacy and medication before forwarding?yes Pharmacy: [id number] [address] [facility] Pending Prescriptions: Disp Refills Losartan Potassium 100 MG Oral Tablet (Co*90 Tab*3 Sig: Take 1 Tablet by mouth in the morning. Last Visit: 05/01/2023 (in office), Visit date not found (telemedicine) Next Visit: Visit date not found If no future appointments scheduled, and last appointment is greater than a year ago, please schedule patient for a follow-up appointment Last date the medication was ordered: 05/01/2023 Is this request for a controlled substance?No Urine Drug Screen:No results found for this or any previous visit. Patient Phone Numbers Labs: Lab Results Component Value Date/Time CREAT 1.0 05/01/2019 11:17 AM POTASSIUM 4.6 05/01/2019 11:17 AM TSH 1.71 05/01/2019 11:17 AM LDLCALC 99 05/01/2019 11:17 AM LDLDIRECT NOT APPLICABLE 05/01/2019 11:17 AM LDLDIRECT 136 (H) 04/11/2011 04:13 PM ALT 26 05/01/2019 11:17 AM * Telephone Encounter - Camelia Miller LPN - 05/28/2023 1:16 PM EST Please assist pt with scheduling NV for BP check. Have pt bring in home cuff so we can see if accurate * Telephone Encounter - Tl Chan OSA - 05/28/2023 11:51 AM EST Pt called in and stated that if it is possible to stop by and get his blood pressure taken wheneverconvenient. Pt stated the doctor wants to monitor his blood pressure but the cuff he has keeps giving him different readings and he does not want a medication change on false reading. documented in this encounter Plan of Treatment Health Maintenance Due Date Last Done Comments Hepatitis B (1 of 3 - 3-dose series) 1969 Albumin/Creatinine Ratio 07/30/1987 Hepatitis C Screening 07/30/1987 DTaP,Tdap,and Td Vaccines (1 - Tdap) 1988 Cologuard 2014 Colonoscopy 2014 Colorectal Cancer Screening 2014 Fecal Occult Blood Test 2014 Sigmoidoscopy 2014 Depression Screening 06/18/2018 06/18/2017 Zoster Vaccines (1 of 2) 07/30/2019 GFR 05/01/2020 05/01/2019, 05/23, 04/27/2014, Additional history exists Diabetes Screening 05/01/2022 05/01/2019, 0 06/19/2017, 04/27/2014, Additional history exists COVID-19 Vaccine ( season) 2023 06/10/2021, 05/20/2021 Influenza Vaccine (FLU shot) (#1) 2023 Lipid Panel 05/01/2024 05/01/2019, 05/23, 04/27/2014, Additional history exists GARDASIL-HPV IMMUNIZATION SERIES Aged Out No longer eligible based on patient's age to complete this topic MENINGOCOCCAL (MENACTRA/MENVEO) Aged Out No longer eligible based on patient's age to complete this topic Pneumococcal Vaccine: Pediatrics (0 to 5 Years) and At-Risk Patients (6 to 64 Years) Aged Out No longer eligible based on patient's age to complete this topic documented as of this encounter Medical Devices Implanted Type Area Inspector Aligning Device Identifier Shelf Expiration Date Model / Serial / Lot Suture [place] [id number] - [id number] Implanted:Qty: 1 on 04/11/2016 by Kenyetta TERRAZAS, Dale Valdes MD at OR [facility] Right: Shoulder [employer] 10/18/2020 [id number] -[id number] / / [id number] documented as of this encounter Care Teams Traffic Maintenance Officer Relationship Specialty Start Date End Date William Ren MD [address] [place] [address] PCP - General Family Medicine 05/01/23 documented as of this encounter
--- OUTSIDE RECORDS SUMMARY | 2023-06-28 21:24 | External Medical Summary | Summary of Care ---
Author Name Unknown Organization [facility] Address [address] [place] [address] Phone [phone] Care Team Providers Care Nail Welter Name Role Phone William Ren MD Primary Care Provider [phone] Reason for Visit * Reason Onset Date Comments Advice 05/28/2023 Medication Refill 05/28/2023 Encounter Details Date Type Department Care Team (Late st Contact Info) Description 05/28/2023 Refill [facility] [address] [place] [address] William Ren MD [address] [place] [address] Allergies No known active allergiesdocumented as of this encounter (statuses as of 05/31/2023) Medications Medication Sig Dispensed Refills Start Date [...] as of this encounter (statuses as of 05/31/2023) Active Problems Problem Noted Date Diagnosed Date HTN, goal below 140/80 06/18/2017 Chronic pain in testicle 06/18/2017 Dyslipidemia, goal LDL below 160 06/18/2017 Obstructive sleep apnea 08/02/2008 Overview: ICD-10 update of inactive term ADVANCE DIRECTIVE INFORMATION 10/18/2005 Overview: No, Advance Directive brochure given to patient at prior appointment. Tobacco use disorder 06/18/2000 documented as of this encounter (statuses as of 05/31/2023) Resolved Problems Problem Noted Date Diagnosed Date Resolved Date BMI 35-39 ISOLATED (SEE ACTUAL BMI) 11/01/2009 06/18/2017 Overview: Per Obesity Protocol, #19 Diverticulitis of colon 07/20/200905/22 Other specified pre-operative examination 07/08/2008 06/18/2017 Hypoglycemia 06/18/2017 documented as of this encounter (statuses as of 05/31/2023) Social History Tobacco Use Types Packs/Day Years [...] encounter Miscellaneous Notes * Telephone Encounter - Cadence Munoz OSA - 05/31/2023 8:46 AM EST LMOM. Letter sent. 05/31/2023 * Telephone Encounter - William Ren MD [...] pharmacy and medication before forwarding?yes Pharmacy: [facility][id number] [address] [facility] Pending Prescriptions: Disp Refills Losartan Potassium 100 [...] this encounter Medical Devices Implanted Type Area Procurement Agent Device Identifier Shelf Expiration Date Model / Serial / Lot Suture [place] [id number] - [id number] Implanted:Qty: 1 on 04/11/2016 by Dale Kumari IV, MD at OR [facility] Right: Shoulder [employer] 10/18/2020 [id number] -[id number] / / [id number] documented as of this encounter Care Teams Nail Welter Relationship Specialty Start Date End Date William Ren MD [address] [place] [address] PCP - General Family Medicine 05/01/23 documented as of this encounter
--- OUTSIDE RECORDS SUMMARY | 2023-06-28 21:24 | External Medical Summary | Summary of Care ---
Author Name Unknown Organization [facility] Address [address] [place] [address] Phone [phone] Care Team Providers Care Grade School Teacher Name Role Phone William Ren MD Primary Care Provider [phone] Reason for Visit * Reason Onset Date Comments Advice 05/28/2023 Medication Refill 05/28/2023 Encounter Details Date Type Department Care Team (Late st Contact Info) Description 05/28/2023 Refill [facility] [address] [place] [address] William Ren MD [address] [place] [address] Allergies No known active allergiesdocumented [...] encounter Miscellaneous Notes * Telephone Encounter - Rosendo Hendricks, JANE - 05/31/2023 8:56 AM EST Patient has been notified of the message. Patient has no further questions. Patient stated that he will call back to schedule the nurse visit. * Telephone Encounter - Cadence Munoz OSA [...] preferred pharmacy and medication before forwarding?yes Pharmacy: [id number] [address] [place] [address] Pending Prescriptions: Disp Refills Losartan Potassium 100 [...] this encounter Medical Devices Implanted Type Area Clinical Safety Specialist Device Identifier Shelf Expiration Date Model / Serial / Lot Suture [place] [id number] - [id number] Implanted:Qty: 1 on 04/11/2016 by Dale Kumari IV, MD at OR [facility] Right: Shoulder [employer] 10/18/2020 [id number] -45 / / [id number] documented as of this encounter Care Teams Grade School Teacher Relationship Specialty Start Date End Date William Ren MD [address] [place] [address] PCP - General Family Medicine 05/01/23 documented as of this encounter
--- OUTSIDE RECORDS SUMMARY | 2023-06-28 21:24 | External Medical Summary | Summary of Care ---
Author Name Unknown Organization [facility] Address [address] [place] [address] Phone [phone] Care Team Providers Care Technical Service Representative Name Role Phone Laron Ren MD Primary Care Provider [phone] Reason for Visit * Reason Onset Date Comments Health Maintenance 05/22/2023 Encounter Details Date Type Department Care Team (Late st Contact Info) Description 05/22/2023 Telephone [facility] [address] [place] [address] Laron Ren MD [address] [place] [address] Health Maintenance Allergies No known active allergiesdocumented as of this encounter (statuses as of 05/22/2023) Medications Medication Sig Dispensed Refills Start Date End Date Status hydroCHLOROthiazide (HYDRODIURIL) 12.5 MG CapsuleIndications: HTN, goal below 140/80 TAKE ONE CAPSULE BY MOUTH ONE TIME DAILY 30 Cap 0 12/25/2018 Active Additional Information Patient not taking.Reported on 05/01/2023 Losartan Potassium 100 MG Oral Tablet (Cozaar) Take 1 Tablet by mouth in the morning. 90 Tablet 3 05/01/2023 Active documented as of this encounter (statuses as of 05/22/2023) Active Problems Problem Noted Date Diagnosed Date HTN, goal below 140/80 06/18/2017 Chronic pain in testicle 06/18/2017 Dyslipidemia, goal LDL below 160 06/18/2017 Obstructive sleep apnea 08/02/2008 Overview: ICD-10 update of inactive term ADVANCE DIRECTIVE INFORMATION 10/18/2005 Overview: No, Advance Directive brochure given to patient at prior appointment. Tobacco use disorder 06/18/2000 documented as of this encounter (statuses as of 05/22/2023) Resolved Problems Problem Noted Date Diagnosed Date Resolved Date BMI 35-39 ISOLATED (SEE ACTUAL BMI) 11/01/2009 06/18/2017 Overview: Per Obesity Protocol, #19 Diverticulitis of colon 07/20/200905/22 Other specified pre-operative examination 07/08/2008 06/18/2017 Hypoglycemia 06/18/2017 documented as of this encounter (statuses as of 05/22/2023) Social History Tobacco Use Types Packs/Day Years [...] encounter Miscellaneous Notes * Telephone Encounter - Daria Barahona LPN - 05/22/2023 8:34 AM EST Care Gaps Comprehensive Care Outreach Last Office/Telemedicine Visit: 05/01/2023 (in office), Visit date not found (telemedicine) Next Office Visit: Visit date not found Hemoglobin AIC Results: No results found for: "HEMOGLOBIN A1C" Reviewed Health Maintenance below: Health Maintenance Topic Date Due Hepatitis B (1 of 3 - 3-dose series) Never done Albumin/Creatinine Ratio Never done Hepatitis C Screening Never done DTaP,Tdap,and Td Vaccines (1 - Tdap) Never done Colorectal Cancer Screening Never done Depression Screening 06/18/2018 Zoster Vaccines (1 of 2) Never done GFR 05/01/2020 Diabetes Screening 05/01/2022 Influenza Vaccine (FLU shot) (1) Never done COVID-19 Vaccine ( season) 2023 Labs already ordered add urine colon Care Gap Outreach Action Taken: Left message documented in this encounter Plan of Treatment [...] this encounter Medical Devices Implanted Type Area Coreroom Foundry Laborer Device Identifier Shelf Expiration Date Model / Serial / Lot Suture [place] [id number] - [id number] Implanted:Qty: 1 on 04/11/2016 by Dale Kumari IV, MD at OR [facility] Right: Shoulder [employer] 10/18/2020 [id number] -45 / / [id number] documented as of this encounter Care Teams Technical Service Representative Relationship Specialty Start Date End Date Laron Ren MD [address] [place] [address] PCP - General Family Medicine 05/01/23 documented as of this encounter
--- OUTSIDE RECORDS SUMMARY | 2023-06-28 21:24 | External Medical Summary | Summary of Care ---
Author Name Unknown Organization [facility] Address [address] [place] [address] Phone [phone] Care Team Providers Care Bag Turner Name Role Phone Laron Ren MD Primary Care Provider [phone] Reason for Visit * Reason Onset Date Comments Appointment 02/04/2023 Encounter Details Date Type Department Care Team (Late st Contact Info) Description 02/04/2023 Telephone [facility] [address] [place] [address] Duyen Charlton MD [address] [place] [address] Appointment Allergies No known active allergiesdocumented as of this encounter (statuses as of 05/06/2023) Medications Medication Sig Dispensed Refills Start Date End Date Status hydroCHLOROthiazide (HYDRODIURIL) 12.5 MG CapsuleIndications:H TN, goal below 140/80 TAKE ONE CAPSULE BY MOUTH ONE TIME DAILY 30 Cap 0 12/25/2018 Active Additional Information Patient not taking.Reported on 05/01/2023 documented as of this encounter (statuses as of 05/06/2023) Active Problems Problem Noted Date Diagnosed Date HTN, goal below 140/80 06/18/2017 Chronic pain in testicle 06/18/2017 Dyslipidemia, goal LDL below 160 06/18/2017 Obstructive sleep apnea 08/02/2008 Overview: ICD-10 update of inactive term ADVANCE DIRECTIVE INFORMATION 10/18/2005 Overview: No, Advance Directive brochure given to patient at prior appointment. Tobacco use disorder 06/18/2000 documented as of this encounter (statuses as of 05/06/2023) Resolved Problems Problem Noted Date Diagnosed Date Resolved Date BMI 35-39 ISOLATED (SEE ACTUAL BMI) 11/01/2009 06/18/2017 Overview: Per Obesity Protocol, #19 Diverticulitis of colon 07/20/200905/22 Other specified pre-operative examination 07/08/2008 06/18/2017 Hypoglycemia 06/18/2017 documented as of this encounter (statuses as of 05/06/2023) Social History Tobacco Use Types Packs/Day Years Used Date Smoking Tobacco: Former Cigarettes 0.5 20 Smokeless Tobacco: Current Chew Comments:[place] Alcohol Use [...] encounter Miscellaneous Notes * Telephone Encounter - Sandra Buchanan OSA - 02/04/2023 8:12 PM EDT Pt would like to reschedule 02/05 appt JANE Brooks 02/04/2023 8:13 PM documented in this encounter Plan of Treatment [...] 06/19/2017, 04/27/2014, Additional history exists COVID-19 Vaccine (2022- season) 2023 06/10/2021, 05/20/2021 Influenza Vaccine (FLU [...] this encounter Medical Devices Implanted Type Area Practice Nurse Device Identifier Shelf Expiration Date Model / Serial / Lot Suture Calvin [id number] - [id number] Implanted:Qty: 1 on 04/11/2016 by Dale Kumari IV, MD at OR [facility] Right: Shoulder [employer] 10/18/2020 [id number] -45 / / [id number] documented as of this encounter Care Teams Bag Turner Relationship Specialty Start Date End Date Laron Ren MD [address] [place] [address] PCP - General Family Medicine 05/01/23 documented as of this encounter
--- OUTSIDE RECORDS SUMMARY | 2023-06-28 21:24 | External Medical Summary | Summary of Care ---
Author Name Unknown Organization [facility] Address [address] [place] [address] Phone [phone] Care Team Providers Care First Line Supervisor Name Role Phone Laron Ren MD Primary Care Provider [phone] Reason for Visit * Reason Comments NEW PATIENT Blood pressure check for the BP medsMake on right eye lid Questions about weight gain Encounter Details Date Type Department Care Team (Late st Contact Info) Description 05/01/2023 9:00 AM EST Office Visit [facility] [address] [place] [phone] Laron Ren MD [address], [place] [id number] HTN, goal below 140/80* Allergies No known active allergiesdocumented as of this encounter (statuses as of 05/01/2023) Medications Medication Sig Dispensed Refills Start Date End Date Status hydroCHLOROthiaz mati (HYDRODIURIL) 12.5 MG CapsuleIndicatio ns:HTN, goal below 140/80 TAKE ONE CAPSULE BY MOUTH ONE TIME DAILY 30 Cap 0 12/25/2018 Active Additional Information Patient not taking.Reported on 05/01/2023 Losartan Potassium 100 MG Oral Tablet (Cozaar) Take 1 Tablet by mouth in the morning. 90 Tablet 3 05/01/2023 Active losartan (COZAAR) 100 MG TabletIndication s:HTN, goal below 140/80 TAKE ONE TABLET BY MOUTH ONE TIME DAILY 30 Tab 0 12/25/2018 3 Discontinued documented as of this encounter (statuses as of 05/01/2023) Active Problems Problem Noted Date Diagnosed Date HTN, goal below 140/80 06/18/2017 Chronic pain in testicle 06/18/2017 Dyslipidemia, goal LDL below 160 06/18/2017 Obstructive sleep apnea 08/02/2008 Overview: ICD-10 update of inactive term ADVANCE DIRECTIVE INFORMATION 10/18/2005 Overview: No, Advance Directive brochure given to patient at prior appointment. Tobacco use disorder 06/18/2000 documented as of this encounter (statuses as of 05/01/2023) Resolved Problems Problem Noted Date Diagnosed Date Resolved Date BMI 35-39 ISOLATED (SEE ACTUAL BMI) 11/01/2009 06/18/2017 Overview: Per Obesity Protocol, #19 Diverticulitis of colon 07/20/200905/22 Other specified pre-operative examination 07/08/2008 06/18/2017 Hypoglycemia 06/18/2017 documented as of this encounter (statuses as of 05/01/2023) Social History Tobacco Use Types Packs/Day Years Used Date Smoking Tobacco: Former Cigarettes 0.5 20 Passive Smoke Exposure: Past Smokeless Tobacco: Current Chew Tobacco Cessation:Ready to Q uit: Not Asked; Counseling Given: Not Answered Comments:[place] Alcohol Use Standard Drinks/Week Comments Yes [...] on file documented as of this encounter Last Filed Vital Signs Vital Sign Reading Time Taken Comments Blood Pressure 154/84 05/01/2023 9:46 AM EST Pulse 64 05/01/2023 9:46 AM EST Temperature 36.7 C (98 F) 05/01/2023 9:46 AM EST Respiratory Rate 16 05/01/2023 9:46 AM EST Oxygen Saturation 95% 05/01/2023 9:46 AM EST Inhaled Oxygen Concentration - - Weight 142.5 kg (314 lb 3.2 oz) 05/01/2023 9:46 AM EST Height 183.5 cm (6' 0.25") 05/01/2023 9:46 AM ES T Body Mass Index 42.32 05/01/2023 9:46 AM EST documented in this encounter Progress Notes * Laron Ren MD - 05/01/2023 10:16 AM EST Subjective: Augustine Estrada is a 52 year old male. Chief Complaint Patient presents with NEW PATIENT Blood pressure check for the BP meds Make on right eye lid Questions about weight gain HPI: 52-year-old I am seen for the 1st time. He has lived in [facility] for a year and a half. Prior that he was in [facility]. He carries a diagnosis of hypertension. He was hospitalized [facility] a couple years ago. It seems that he had some type of arrhythmia which may have been paroxysmal atrial tachycardia. I do not think it was atrial fibrillation but I am not sure. Did havea follow-up outpatient evaluation with [facility]. He was told that since his rhythm returned to normal he did not need to do anything. At 1 time he was diagnosed with obstructive sleep apnea but tells methat a ear nose and throat doctor did not recommend CPAP but rather extensive surgery. Ultimately he did not do either. He is not bothered with exertional chest pain or significant shortness of breath. He is concerned that he isn't able to lose weight even though he feels he eats very little and only eats once a day. He does recognize that he works at [employer]. Not a real physical job. He is not aware of heart racing at least not recently. He does not have any problems with bleeding suchas nosebleeds or blood in the urine or stool. Patient Active Problem List Diagnosis Code Tobacco use disorder F17.200 ADVANCE DIRECTIVE INFORMATION Obstructive sleep apnea G47.33 HTN, goal below 140/80 I10 Chronic pain in testicle N50.819, G89.29 Dyslipidemia, goal LDL below 160 E78.5 Current Outpatient Medications Medication Sig Dispense Refill losartan (COZAAR) 100 MG Tablet TAKE ONE TABLET BY MOUTH ONE TIME DAILY 30 Tab 0 hydroCHLOROthiazide (HYDRODIURIL) 12.5 MG Capsule TAKE ONE CAPSULE BY MOUTH ONE TIME DAILY (Patientnot taking: Reported on 05/01/2023) 30 Cap 0 No current facility-administered medications for this visit. Review of patient's allergies indicates: No Known Allergies Objective: BP 154/84 | Pulse 64 | Temp 36.7 C (98 F) (Infrared ) | Resp 16 | Ht 1.835 m (6' 0.25") | Wt (!) 142.5 kg (314 lb 3.2 oz) | SpO2 95% | BMI 42.32 kg/m | BSA 2.7 m Physical Exam: CONST: alert, pleasant, no acute distress HEAD: normocephalic, atraumatic NECK: supple, soft, no adenopathy EARS: canals normal, TMs normal NARES: clear Eyes - PERRLA, EOM'I OROPHARYNX: clear, no swelling or erythema, moist CV: regular rate and rhythm, no murmur CHEST: clear to auscultation bilaterally, no rales or wheezing ABD: soft, non tender, non distended, no masses or hepatosplenomegaly EXT: no edema, no joint swelling or deformities, NEURO: AAOx3, no gross focal deficits, cerebellar signs normal, affect appropriate MENTAL STATUS: no evidence of thought disorder, no delusional thought, no evidence of paranoia, thought is non-tangential. SKIN: no rash or significant lesions ASSESSMENT/PLAN: Hypertension-check comprehensive metabolic panel as well as lipid panel. He has been using lbtjtdqu53 mg daily. Will increase to 100 mg a day. I recommended he buy a home blood pressure monitor and check blood pressure at different times of the day about 3 times a week and record these and get these results to me after he has about a dozen readings. I did recommend that we drop the dose back to 50 mg a day if he is having lightheaded spells in particular if his blood pressure readings systolics are Um 110 or lower. Obesity with BMI 42-I recommended he try to eat twice a day. We talked about possible referral to GI nutrition to discuss weight loss medications but at this point time he is not interested. With hishistory of sleep apnea that was never treated in the past, if that persists that is going to contributed to Um difficulty Um with weight. For now he does not want to re-evaluate for sleep apnea. Routine health maintenance-patient is not interested in immunizations. He believes his last tetanusshot was about 5 years ago. Does not want shingles or Um flu shot. Laron Ren MD documented in this encounter Nursing Notes * Maria Victoria Hardin LPN - 05/01/2023 9:41 AM EST Chief Complaint Patient presents with NEW PATIENT Blood pressure check for the BP meds Make on right eye lid Questions about weight gain documented in this encounter Plan of Treatment Scheduled Orders Name Type Priority Associated Diagnoses Orde r Schedule COMPREHENSIVE METABOLIC PANEL Lab Routine HTN, goal below 140/80 Expected: 05/01/2023 (Approximate), Expires: 04/30/2024 LIPID PANEL WITH DIRECT LDL IF TG IS HIGH Lab Routine HTN, goal below 140/80 Expected: 05/01/2023, Expires: 05/01/2024 Health Maintenance Due Date Last Done Comments Hepatitis B (1 of 3 - 3-dose series) 1969 COVID-19 Vaccine (#1) 01/29/1970 06/10/2021, 021 Albumin/Creatinine Ratio 07/30/1987 Hepatitis C Screening 07/30/1987 DTaP,Tdap,and Td Vaccines (1 - Tdap) 1988 Cologuard 2014 Colonoscopy 2014 Colorectal Cancer Screening 2014 Fecal Occult Blood Test 2014 Sigmoidoscopy 2014 Depression Screening 06/18/2018 06/18/2017 Zoster Vaccines (1 of 2) 07/30/2019 GFR 05/01/2020 05/01/2019, 05/23, 04/27/2014, Additional history exists Diabetes Screening 05/01/2022 05/01/2019, 0 06/19/2017, 04/27/2014, Additional history exists Influenza Vaccine (FLU shot) (#1) 2023 Lipid [...] this encounter Medical Devices Implanted Type Area Land Commissioner Device Identifier Shelf Expiration Date Model / Serial / Lot Suture [place] [id number] - [id number] Implanted:Qty: 1 on 04/11/2016 by Dale Kumari IV, MD at OR [facility] Right: Shoulder [employer] 10/18/2020 [id number] / / [id number] documented as of this encounter Visit Diagnoses Diagnosis HTN, goal below 140/80- Primary Unspecified essential hypertension documented in this encounter Care Teams First Line Supervisor Relationship Specialty Start Date End Date Laron Ren MD [address] [place] [address] PCP - General Family Medicine 05/01/23 documented as of this encounter
[2023-06-29 05:13] LABS: Basophils # (auto) 0.04 K/uL (0.00-0.20); Basophils % (auto) 0.8 %; Eosinophils # (auto) 0.04 K/uL (0.00-0.50); Eosinophils % (auto) 0.8 %; Hematocrit (blood only) 40.1 % (42.0-52.0); Hemoglobin 13.4 g/dl (14.0-18.0); Immature Granulocytes # (auto) 0.02 K/uL (0.01-0.20); Immature Granulocytes % (auto) 0.4 %; Lymphocytes # (auto) 0.81 K/uL (1.20-3.40); Lymphocytes % (auto) 16.4 %; Mean Corpuscular Hemoglobin 29.7 pg (25.0-34.0); Mean Corpuscular Hgb Conc 33.4 g/dL (32.0-36.0); Mean Corpuscular Volume 88.9 fL (80.0-100.0); Mean Platelet Volume 10.9 fL (9.4-12.4); Monocytes # (auto) 0.91 K/uL (0.11-0.59); Monocytes % (auto) 18.4 %; Neutrophils # (auto) 3.12 K/uL (1.40-6.50); Neutrophils % (auto) 63.2 %; Platelet Count 122 K/uL (130-400); RDW Coefficient of Variation 12.5 % (11.5-14.5); RDW Standard Deviation 40.8 fL (36.4-46.3); Red Blood Count 4.51 M/uL (4.70-6.10); White Blood Count 4.94 K/ul (4.8-10.8)
[2023-06-29 05:17] LABS: Albumin Level 4.2 gm/dl (3.4-5.0); BUN Creatinine Ratio 12.6 (10-20); Bilirubin Direct 0.1 mg/dl (0-0.2); Bilirubin,Total 0.6 mg/dl (0.2-1.0); Calcium 8.6 mg/dl (8.6-10.3); Chol HDL Ratio 3.8 (0-5); Creatinine Clr Calc Pharmacy 105.4 ml/min; Est GFR (African American) 80.3 ml/min; Est GFR (Non-African American) 69.3 ml/min; Potassium 3.4 mmol/L (3.5-5.1); Total Protein 6.6 gm/dl (6.0-8.3)
[2023-06-29 07:18] LABS: Estimated Average Glucose 137 mg/dl; Hemoglobin A1C 6.4 % (4.5-5.6)
[2023-06-29] MEDS: LOSARTAN POTASSIUM 50 MG TAB PO SCH (08:51)
[2023-06-29] MEDS: POTASSIUM CHLORIDE CRTAB 20 MEQ TABCR PO ONE (08:51)
--- NOTE | 2023-06-29 10:36 | Electrocardiogram Report ---
Test Reason : Blood Pressure : / mmHG Vent. Rate : 048 BPM Atrial Rate : 048 BPM P-R Int : 228 ms QRS Dur : 156 ms QT Int : 472 ms P-R-T Axes : 007 083 038 degrees QTc Int : 421 ms Sinus bradycardia with 2:1 second degree A-v block Right bundle branch block Abnormal ECG When compared with ECG of 28-JUN-2023 12:37, No significant change was found Confirmed by David Walton ([id number]) on 06/29/2023 10:35:50 AM Referred By: REFERRED SELF Confirmed By:David Walton
--- NOTE | 2023-06-29 10:36 | Electrocardiogram Report ---
Test Reason : Blood Pressure : / mmHG Vent. Rate : 056 BPM Atrial Rate : 056 BPM P-R Int : 000 ms QRS Dur : 166 ms QT Int : 462 ms P-R-T Axes : 000 081 013 degrees QTc Int : 445 ms Sinus rhythm with 2nd degree A-V block (Mobitz I) Non-specific intra-ventricular conduction block Abnormal ECG When compared with ECG of 28-JUN-2023 16:08, 2:1 block no longer present Confirmed by David Walton ([id number]) on 06/29/2023 10:36:30 AM Referred By: REFERRED SELF Confirmed By:David Walton
--- NOTE | 2023-06-29 11:15 | Neurology Consultation ---
Date of Consultation June 29, 2023 Assessment & Plan (1) Dysequilibrium: Dysequilibrium secondary to machine use at work. No concern for central cause. Recommend work accommodations. Can trial meclizine if acceptable by his employer as it can be sedating. No further neurologic workup. Telehealth Consultation Telehealth Information Telehealth Information: I performed this visit using a real-time telehealth connection between my location and the patients location ([facility]). After connecting through interactive tele-video, patient was identified by name and date of and/or wristband check.Patient (or authorized healthcare administrative representative) was informed that this was a telemedicine visit and it was being conducted confidentially over secure lines. My office door was closed and no one else was present in the room with me.Patient (or authorized healthcare administrative representative) provided consent to proceed with the visit, expressed an understanding of privacy and security of the telemedicine visit, and gave permission to have a hospital administrative representative in the room in order to assist with the visit and to conduct portions of the visit, as needed. I informed the patient (or authorized healthcare administrative representative) that I reviewed their record and presented the opportunity for them to ask any questions regarding the visit today. The patient agreed to participate. History of Present Illness Reason for Consultation: Vertigo Requesting Physician: Dr. 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 He was admitted for stroke workup which was unremarkable and today feels much better though admits his vision is not quite back to normal. Of note he was significantly hypertensive on admission but this has also improved today. 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 Allergies Allergy/AdvReac Type Severity Reaction Status Date / Time adhesive tape AdvReac Intermediate SKIN TEARS Verified 06/28/23 15:37 Home Medications Medication Instructions Recorded Confirmed Type losartan 100 mg tablet 100 mg PO DAILY 06/28/23 06/28/23 History Patient History Medical History (Updated 06/28/23 @ 20:50 by Marielena Jacobson DO) Tobacco use former smoker, does chew JANE (obstructive sleep apnea) HLD (hyperlipidemia) Hypertension Hypophosphatemia Hyponatremia Surgical History (Updated 06/28/23 @ 15:30 by Criss Schulz PA-C) History of orchiectomy History of vasectomy Hx of shoulder surgery Family History Denies family history of Stroke Social History Smoking Status: Former smoker Tobacco Type: Smokeless Tobacco (Dip or Chew) Second Hand Exposure: No; Do You Dip or Chew Tobacco: Yes; Tobacco Cessation Education Requested by Patient: No Hx Alcohol Use: No Hx Substance Use: No Preferred Language: Cantonese Urdu Communication Ability: Effective Crane Helper Required: No Beliefs That Will Affect Care: None Current Living Situation: Spouse Other Information That Helps Us Care for You: No Feels Safe at Home: Yes Safety Concerns: Feels Safe At This Time Assistive Devices: None Review of Systems +blurry vision Physical Exam Awake and alert, antigravity strength throughout, no abnormal movements. Movements were non-ataxic. Results & Data Vital Signs (Past 12 Hours) Vital Signs Temp Pulse Resp BP Pulse Ox O2 Del Method 06/29/23 07:23 37.5 C 64 19 110/61 96 Room Air 06/29/23 02:46 36.6 C 46 L 18 146/64 H 95 Room Air 06/28/23 23:24 36.8 C 48 L 18 106/61 95 Room Air Laboratory Results Abnormal lab results 06/28/23 06/28/23 06/28/23 Range/Units 12:44 20:08 Unknown RBC (4.70-6.10) M/uL Hgb (14.0-18.0) g/dl Hct (42.0-52.0) % Plt Count (130-400) K/uL Lymph # (Auto) 0.47 L (1.20-3.40) K/uL [place] # (Auto) (0.11-0.59) K/uL Sodium (136-145) mmol/L Potassium (3.5-5.1) mmol/L Glucose 202 H (70-99(Fasting)) mg/dl POC Glucose 148 H (70-99) mg/dl Hemoglobin A1c (4.5-5.6) % ALT 56 H (7-52) U/L Alkaline Phosphatase 33 L (34-104) U/L Ur Specific [place] > 1.045 H (1.000-1.030) Urine Glucose (UA) 2+ H (Negative) Urine Ketones Trace H (Negative) 06/29/23 06/29/23 Range/Units 04:08 08:06 RBC 4.51 L (4.70-6.10) M/uL Hgb 13.4 L (14.0-18.0) g/dl Hct 40.1 L (42.0-52.0) % Plt Count 122 L (130-400) K/uL Lymph # (Auto) 0.81 L (1.20-3.40) K/uL [place] # (Auto) 0.91 H (0.11-0.59) K/uL Sodium 134 L (136-145) mmol/L Potassium 3.4 L (3.5-5.1) mmol/L Glucose 148 H (70-99(Fasting)) mg/dl POC Glucose 149 H (70-99) mg/dl Hemoglobin A1c 6.4 H (4.5-5.6) % ALT (7-52) U/L Alkaline Phosphatase 25 L (34-104) U/L Ur Specific [place] (1.000-1.030) Urine Glucose (UA) (Negative) Urine Ketones (Negative) Diagnostic Findings MRI Brain - Unremarkable CTA - Unremarkable
--- NOTE | 2023-06-29 11:39 | XCELERA ---
[id number]}___[id number].pdf
--- NOTE | 2023-06-29 15:09 | Hospitalist Progress Note ---
Date of Service June 29, 2023 Assessment & Plan (1) Stroke-like symptoms: (2) Abnormal ECG: (3) Bradycardia: (4) Hypertension: (5) JANE (obstructive sleep apnea): (6) Dysequilibrium: (7) Tobacco use: Plan Patient is a 52 yr male who has a significant past medical history HTN, HLD, untreated sleep apnea, tobacco use disorder who presents to ED secondary to visual change and off balance x 1 day. Strokelike symptoms Disequilibrium --MRI Brain:No acute intracranial findings. No intracranial mass or pathologic enhancement. --Head CTA: Unremarkable CTA of the head. No large vessel occlusion. No intracranial aneurysm. --Neck CTA:Unremarkable CT angiogram of the neck. --ECHO as below --Normal lipid panel Less likely CVA Symptoms likely related to work Clinically improving Consider meclizine if needed Appreciate neurology input PT OT, fall precautions Sinus rhythm with second-degree AV block Mobitz type I Chronic sinus bradycardia Conduction abnormality Presented with palpitations --ECHO: No significant change from prior study. Left ventricle systolic function is normal. EF 55 to 60%. Left ventricle wall motion is normal. Mild concentric LVH. Right ventricle is normal in size and function. Mild mitral regurgitation. Right ventricular systolic pressure is normal. -- Avoid AV murali blocking agents as able Cardiology consulted Monitor on telemetry Hypokalemia Hyponatremia Replace electrolytes as needed Monitor HTN Hypertensive urgency on presentation ? Situational BP Variable Continue losartan Monitor BP JANE Untreated Patient was advised to get surgery previously which he refused Needs outpatient sleep study Prediabetes HbA1c 6.4 Advise lifestyle changes Elevated ALT LFTs normalized Monitor Morbid obesity BMI 40 Advise lifestyle changes DVT Px: SCDs Code Status FULL CODE Admission and Anticipated Discharge Date Admission Date: June 28, 2023 Subjective Patient is seen and examined at bedside Palpitations, headache resolved Vision much improved Discussed with neurology today Reports chronic low heart rates Denies any chest pain, dyspnea, nausea, vomiting No other complaints Review of Systems Review of Systems: All systems reviewed & are unremarkable except as noted in Subjective Physical Exam Physical Exam: Physical Exam: Vitals signs as noted above General Appearance:Obese, no apparent distress Head: normocephalic, Atraumatic Eyes: normal inspection, EOMI Neck: supple, Trachea midline Respiratory/Chest: Normal breath sounds, CTA, No accessory muscle use Cardiovascular: S1, S2, No murmur, +Bradycardia Abdomen/GI:Soft, Non tender, Bowel sounds present Extremities/Musculoskeletal:normal inspection, no edema Neurologic/Psych:AAOX3, grossly no focal neurological deficits Skin: normal color, warm Results & Data Results & Data Vital Signs (Past 12 Hours) Vital Signs Temp Pulse Pulse Resp BP Pulse Ox O2 Del Method 06/29/23 11:38 37.4 C 59 L 20 110/65 95 Room Air 06/29/23 07:23 37.5 C 64 19 110/61 96 Room Air 06/29/23 05:59 56 L Laboratory Results Short CBC 06/29/23 Range/Units 04:08 WBC 4.94 (4.8-10.8) K/ul Hgb 13.4 L (14.0-18.0) g/dl Hct 40.1 L (42.0-52.0) % Plt Count 122 L (130-400) K/uL BMP 06/29/23 04:08 Sodium 134 L Potassium 3.4 L Chloride 103 Carbon Dioxide 23 BUN 15 Creatinine 1.19 Glucose 148 H Calcium 8.6 Liver Function 06/29/23 Range/Units 04:08 Total Bilirubin 0.6 (0.2-1.0) mg/dl Direct Bilirubin 0.1 (0-0.2) mg/dl AST 33 (13-39) U/L ALT 49 (7-52) U/L Alkaline Phosphatase 25 L (34-104) U/L Albumin 4.2 (3.4-5.0) gm/dl Urine 06/28/23 Range/Units Unknown Urine Color Yellow Urine Appearance Clear (Clear) Urine pH 5.0 (4.5-7.5) Ur Specific [place] > 1.045 H (1.000-1.030) Urine Protein Negative (Negative) Urine Glucose (UA) 2+ H (Negative) (4) Hypertension Hypertension type: unspecified Qualified Code(s): I10 - Essential (primary) hypertension
--- NOTE | 2023-06-29 16:55 | Communication Note ---
Date of Service: June 29, 2023 Patient spiked fever complaints of mild cough. Will check [employer] Initial chest x-ray on admission showed no acute findings Will repeat chest x-ray tomorrow Tylenol as needed for now
--- NOTE | 2023-06-29 17:31 | Cardiology Consultation ---
Date of Consultation June 29, 2023 Assessment & Plan (1) Mobitz type 1 second degree atrioventricular block: (2) Right bundle branch block: (3) Mitral regurgitation: Plan 1. Mobitz 1 av conduction: This is longstanding in nature. No evidence of Lyme disease on testing previously. He has very mild LVH on his echocardiogram, but an infiltrative process such as sarcoid is possible. I think amlodipine be less likely given his echocardiogram in the stability of the conduction over 2 years. Outpatient cardiac MRI would be reasonable evaluation. I do not believe he requires any immediate treatment. While he does have significant conduction disease and periods of bradycardia, he does not report symptoms associated with bradycardia. In fact, when ambulatory his conduction improves this is typical with Mobitz 1 conduction. In the absence of symptoms associated with bradycardia or worsening conduction disease I do not believe there is any indication for pacemaker or intervention. He should avoid agents which worsened AV murali conduction, beta-blockers and calcium channel blockers. 2. Right bundle branch block 3. Mitral regurgitation: Mild History of Present Illness Reason for Consultation: Abnormal EKG Requesting Physician: Addy Attending Physician: Valeriy Daly MD History of Present Illness The patient is a 52-year-old gentleman to the emergency room with a visual disturbance. The patient states prior to admission he awoke from sleep with some reduced visual acuity. This was accompanied by a sense of disequilibrium. Additional symptoms included headache. He denies any specific focal deficits. No other recent constitutional symptoms. In 2021 the patient was admitted for dizziness as well. He was noted at that time to have evidence of AV conduction disease characterized as a Mobitz 1 av block. At the time of his admission for his current complaints he was noted to have AV conduction disease characterizes a Mobitz 1 av block. We were subsequently consulted for evaluation. The patient is active individual. Generally speaking is able to perform routine activity and heavy exertion without symptom. He seems to have appropriate dyspnea with his level of activity. He did not report general symptoms of dizziness or lightheadedness. No symptoms of presyncope or history of syncope. Very rarely aware of palpitations when lying in bed at night, but not often or bothersome. He does not have any devices at home which monitor his heart rate regularly. Allergies Allergy/AdvReac Type Severity Reaction Status Date / Time adhesive tape AdvReac Intermediate SKIN TEARS Verified 06/28/23 15:37 Home Medications Medication Instructions Recorded Confirmed Type losartan 100 mg tablet 100 mg PO DAILY 06/28/23 06/28/23 History Patient History Medical History (Updated 06/30/23 @ 07:50 by Kuldip Grullon MD) Tobacco use former smoker, does chew JANE (obstructive sleep apnea) HLD (hyperlipidemia) Hypertension Hypophosphatemia Hyponatremia Surgical History (Updated 06/28/23 @ 15:30 by Criss Schulz PA-C) History of orchiectomy History of vasectomy Hx of shoulder surgery Family History Denies family history of Stroke Social History Smoking Status: Former smoker Tobacco Type: Smokeless Tobacco (Dip or Chew) Second Hand Exposure: No; Do You Dip or Chew Tobacco: Yes; Tobacco Cessation Education Requested by Patient: No Hx Alcohol Use: No Hx Substance Use: No Preferred Language: AVAST Softwareonese Beninese Communication Ability: Effective Marzipan Molder Required: No Beliefs That Will Affect Care: None Current Living Situation: Spouse Other Information That Helps Us Care for You: No Feels Safe at Home: Yes Safety Concerns: Feels Safe At This Time Assistive Devices: None Review of Systems Review of Systems: Per HPI Physical Exam Physical Exam: The patient is alert and oriented. Mood and affect appeared normal. He answered all questions appropriately. HEENT: Pupils are equal and reactive to light and accommodation. Extraocular movements are intact. The sclerae are anicteric. Neuro: Cranial nerves intact Lungs: Clear to auscultation bilaterally. He has good air movement without use of accessory muscles. No rales wheezes or rhonchi. Cardiac: Heart demonstrates an irregular rhythm. Normal rate. Normal S1 and S2. No murmurs on examination. Pulses: The patient has palpable radial pulses bilaterally that are equal in intensity Extremities: There was no evidence of hypoperfusion. There is no cyanosis or clubbing. There is no edema. Skin: I did not appreciate any rashes on examination today. Results & Data Vital Signs (Past 12 Hours) Vital Signs Temp Pulse Pulse Resp BP Pulse Ox O2 Del Method 06/29/23 16:11 37.8 C H 64 19 144/84 H 94 Room Air 06/29/23 11:38 37.4 C 59 L 20 110/65 95 Room Air 06/29/23 07:23 37.5 C 64 19 110/61 96 Room Air 06/29/23 05:59 56 L Laboratory Results Abnormal Lab Results 06/29/23 06/29/23 06/29/23 08:06 12:06 16:51 WBC RBC Hgb Hct MCV MCH MCHC RDW Std Deviation RDW Coeff of Tova Plt Count MPV Immature Gran % (Auto) Neut % (Auto) Lymph % (Auto) Twiggs % (Auto) Eos % (Auto) Baso % (Auto) Neut # (Auto) Lymph # (Auto) Twiggs # (Auto) Eos # (Auto) Baso # (Auto) Immature Gran # (Auto) Sodium Potassium Chloride Carbon Dioxide Anion Gap BUN Creatinine Est Cr Clr Drug Dosing Est GFR ( Amer) Est GFR (Non-Af Amer) BUN/Creatinine Ratio Glucose POC Glucose 149 H 142 H 123 H Calcium Magnesium Nasal Influ A H1 2008 PCR Adenovirus (PCR) B. pertussis DNA (PCR) B.parapertussis DNA PCR C. pneumoniae DNA (PCR) Coronavirus OC43 (PCR) Coronavirus HKU1 (PCR) Coronavirus 229E (PCR) SARS-CoV-2 (PCR) Coronavirus NL63 (PCR) Human Metapneumovir PCR Influenza Type B (PCR) M. pneumoniae (PCR) Parainfluenza 1 (PCR) Parainfluenza 2 (PCR) Parainfluenza 3 (PCR) Parainfluenza 4 (PCR) RSV (PCR) Entero/Rhino (PCR) 06/29/23 06/29/23 06/30/23 20:08 22:23 05:01 WBC 3.52 L RBC 4.71 Hgb 14.0 Hct 42.0 MCV 89.2 MCH 29.7 MCHC 33.3 RDW Std Deviation 40.5 RDW Coeff of Tova 12.3 Plt Count 114 L MPV 11.2 Immature Gran % (Auto) 0.3 Neut % (Auto) 53.0 Lymph % (Auto) 30.4 Twiggs % (Auto) 14.8 Eos % (Auto) 0.9 Baso % (Auto) 0.6 Neut # (Auto) 1.87 Lymph # (Auto) 1.07 L Twiggs # (Auto) 0.52 Eos # (Auto) 0.03 Baso # (Auto) 0.02 Immature Gran # (Auto) 0.01 Sodium 136 Potassium 3.8 Chloride 103 Carbon Dioxide 24 Anion Gap 9 BUN 13 Creatinine 0.93 Est Cr Clr Drug Dosing 134.6 Est GFR ( Amer) 108.2 Est GFR (Non-Af Amer) 93.4 BUN/Creatinine Ratio 14.0 Glucose 126 H POC Glucose 161 H Calcium 8.5 L Magnesium 2.2 Nasal Influ A H1 2008 PCR DETECTED A Adenovirus (PCR) Not Detected B. pertussis DNA (PCR) Not Detected B.parapertussis DNA PCR Not Detected C. pneumoniae DNA (PCR) Not Detected Coronavirus OC43 (PCR) Not Detected Coronavirus HKU1 (PCR) Not Detected Coronavirus 229E (PCR) Not Detected SARS-CoV-2 (PCR) Not Detected Coronavirus NL63 (PCR) Not Detected Human Metapneumovir PCR Not Detected Influenza Type B (PCR) Not Detected M. pneumoniae (PCR) Not Detected Parainfluenza 1 (PCR) Not Detected Parainfluenza 2 (PCR) Not Detected Parainfluenza 3 (PCR) Not Detected Parainfluenza 4 (PCR) Not Detected RSV (PCR) Not Detected Entero/Rhino (PCR) Not Detected Diagnostic Findings Brain MRI obtained at the time of admission which did not reveal any acute intracranial findings. Chest x-ray obtained the time admission not reveal any acute cardiopulmonary process Angiogram of the head and neck did not reveal an significant abnormality. Echocardiogram obtained 06/29/2023 revealed normal LV systolic function with ejection fraction 55-60%. Mild LVH. Mild mitral regurgitation. ECG Additional Comments: EKG obtained the time admission revealed normal sinus rhythm with Mobitz 1 conduction and right bundle branch block. Unchanged from 2021 PG Care Time/CCT Total # of Minutes Spent Total Time Spent with Patient: Total time spent is greater than 50% in coordination of care (as documented) at patient's floor/unit and/or counseling patient: Coding Level of Care Code 30437 IN/OBS CONSULT LVL 4,60M Diagnoses Mobitz type 1 second degree atrioventricular block I44.1 Right bundle branch block I45.10 Mitral regurgitation I34.0
[2023-06-29 23:34] LABS: Adenovirus PCR Not Detected (NotDetected); Bordetella parapertussis PCR Not Detected (NotDetected); Bordetella pertussis PCR Not Detected (NotDetected); Chlamydia pneumoniae PCR Not Detected (NotDetected); Coronavirus 229E PCR Not Detected (NotDetected); Coronavirus CoV-2 (COVID19)PCR Not Detected (NotDetected); Coronavirus HKU1 PCR Not Detected (NotDetected); Coronavirus NL63 PCR Not Detected (NotDetected); Coronavirus OC43PCR Not Detected (NotDetected); Human Metapneumovirus PCR Not Detected (NotDetected); Influenza A (H1 2009) PCR DETECTED (NotDetected); Influenza B PCR Not Detected (NotDetected); Mycoplasma pneumoniae PCR Not Detected (NotDetected); Parainfluenza Virus 1 PCR Not Detected (NotDetected); Parainfluenza Virus 2 PCR Not Detected (NotDetected); Parainfluenza Virus 3 PCR Not Detected (NotDetected); Parainfluenza Virus 4 PCR Not Detected (NotDetected); Respiratory Syncytial VirusPCR Not Detected (NotDetected); Rhinovirus/Enterovirus PCR Not Detected (NotDetected)
[2023-06-30 06:15] LABS: Basophils # (auto) 0.02 K/uL (0.00-0.20); Basophils % (auto) 0.6 %; Eosinophils # (auto) 0.03 K/uL (0.00-0.50); Eosinophils % (auto) 0.9 %; Immature Granulocytes # (auto) 0.01 K/uL (0.01-0.20); Immature Granulocytes % (auto) 0.3 %; Lymphocytes # (auto) 1.07 K/uL (1.20-3.40); Lymphocytes % (auto) 30.4 %; Mean Corpuscular Hemoglobin 29.7 pg (25.0-34.0); Mean Corpuscular Hgb Conc 33.3 g/dL (32.0-36.0); Mean Corpuscular Volume 89.2 fL (80.0-100.0); Mean Platelet Volume 11.2 fL (9.4-12.4); Monocytes # (auto) 0.52 K/uL (0.11-0.59); Monocytes % (auto) 14.8 %; Neutrophils # (auto) 1.87 K/uL (1.40-6.50); Platelet Count 114 K/uL (130-400); RDW Coefficient of Variation 12.3 % (11.5-14.5); RDW Standard Deviation 40.5 fL (36.4-46.3); Red Blood Count 4.71 M/uL (4.70-6.10); White Blood Count 3.52 K/ul (4.8-10.8)
[2023-06-30 06:23] LABS: Calcium 8.5 mg/dl (8.6-10.3); Creatinine Clr Calc Pharmacy 134.6 ml/min; Est GFR (African American) 108.2 ml/min; Est GFR (Non-African American) 93.4 ml/min; Magnesium 2.2 mg/dl (1.7-2.4); Potassium 3.8 mmol/L (3.5-5.1)
--- NOTE | 2023-06-30 07:36 | XRay Report ---
SINGLE VIEW CHEST CLINICAL HISTORY: Cough FINDINGS: An AP, portable, upright chest radiograph is compared to study dated 06/28/2023. The examinat ion is degraded by portable technique and apical lordotic positioning. The heart appears mildly enlar ged. The pulmonary vasculature is noncongested. Mild atelectasis is noted at the lung bases. The lung s and pleural spaces are otherwise clear. No pneumothorax is seen. The bony thorax is grossly intact. IMPRESSION: No active disease in the chest. ACT 112: Negative or not required by law. Electronically signed by: Edgard Hunt M.D. 06/30/2023 7:34 AM
--- NOTE | 2023-06-30 09:00 | Cardiology Progress Note ---
Date of Service June 30, 2023 Assessment & Plan (1) Mobitz type 1 second degree atrioventricular block: (2) Right bundle branch block: (3) Mitral regurgitation: Plan 1. Mobitz 1 av conduction: His conduction actually improved this morning. I suspect this is because he is more active and alert. Yesterday he spent a considerable portion of the day in bed resting. Again, he did not describe symptoms consistent with worsening conduction disease or symptomatic bradycard ia. His conduction disease can be followed and re-evaluated in the outpatient setting. 2. Right bundle branch block 3. Mitral regurgitation: Mild Admission and Anticipated Discharge Date Admission Date: June 28, 2023 Subjective This morning patient claimed he feeling well. His vision has not returned entirely to normal but is improved. He has been ambulatory around his room without significant dizziness or limiting dyspnea. No sense of palpitation. Review of Systems Review of Systems: Per HPI Physical Exam Physical Exam: The patient is alert and oriented. Mood and affect appeared normal. He answered all questions appropriately. HEENT: Pupils are equal and reactive to light and accommodation. Extraocular movements are intact. The sclerae are anicteric. Neuro: Cranial nerves intact Lungs: Clear to auscultation bilaterally. He has good air movement without use of accessory muscles. No rales wheezes or rhonchi. Cardiac: Heart demonstrates an irregular rhythm. Normal rate. Normal S1 and S2. No murmurs on examination. Pulses: The patient has palpable radial pulses bilaterally that are equal in intensity Extremities: There was no evidence of hypoperfusion. There is no cyanosis or clubbing. Skin: I did not appreciate any rashes on examination today. Results & Data Vital Signs (Past 12 Hours) Vital Signs Temp Pulse Resp BP Pulse Ox O2 Del Method 06/30/23 07:33 37.0 C 68 18 137/78 95 Room Air 06/30/23 02:46 37.8 C H 74 18 135/76 94 Room Air 06/29/23 23:01 37.1 C 63 18 132/82 95 Room Air Laboratory Results Abnormal Lab Results 06/29/23 06/29/23 06/29/23 12:06 16:51 20:08 WBC RBC Hgb Hct MCV MCH MCHC RDW Std Deviation RDW Coeff of Tova Plt Count MPV Immature Gran % (Auto) Neut % (Auto) Lymph % (Auto) Mora % (Auto) Eos % (Auto) Baso % (Auto) Neut # (Auto) Lymph # (Auto) Mora # (Auto) Eos # (Auto) Baso # (Auto) Immature Gran # (Auto) Sodium Potassium Chloride Carbon Dioxide Anion Gap BUN Creatinine Est Cr Clr Drug Dosing Est GFR ( Amer) Est GFR (Non-Af Amer) BUN/Creatinine Ratio Glucose POC Glucose 142 H 123 H 161 H Calcium Magnesium Nasal Influ A H1 2008 PCR Adenovirus (PCR) B. pertussis DNA (PCR) B.parapertussis DNA PCR C. pneumoniae DNA (PCR) Coronavirus OC43 (PCR) Coronavirus HKU1 (PCR) Coronavirus 229E (PCR) SARS-CoV-2 (PCR) Coronavirus NL63 (PCR) Human Metapneumovir PCR Influenza Type B (PCR) M. pneumoniae (PCR) Parainfluenza 1 (PCR) Parainfluenza 2 (PCR) Parainfluenza 3 (PCR) Parainfluenza 4 (PCR) RSV (PCR) Entero/Rhino (PCR) 06/29/23 06/30/23 06/30/23 22:23 05:01 08:01 WBC 3.52 L RBC 4.71 Hgb 14.0 Hct 42.0 MCV 89.2 MCH 29.7 MCHC 33.3 RDW Std Deviation 40.5 RDW Coeff of Tova 12.3 Plt Count 114 L MPV 11.2 Immature Gran % (Auto) 0.3 Neut % (Auto) 53.0 Lymph % (Auto) 30.4 Mora % (Auto) 14.8 Eos % (Auto) 0.9 Baso % (Auto) 0.6 Neut # (Auto) 1.87 Lymph # (Auto) 1.07 L Mora # (Auto) 0.52 Eos # (Auto) 0.03 Baso # (Auto) 0.02 Immature Gran # (Auto) 0.01 Sodium 136 Potassium 3.8 Chloride 103 Carbon Dioxide 24 Anion Gap 9 BUN 13 Creatinine 0.93 Est Cr Clr Drug Dosing 134.6 Est GFR ( Amer) 108.2 Est GFR (Non-Af Amer) 93.4 BUN/Creatinine Ratio 14.0 Glucose 126 H POC Glucose 129 H Calcium 8.5 L Magnesium 2.2 Nasal Influ A H1 2008 PCR DETECTED A Adenovirus (PCR) Not Detected B. pertussis DNA (PCR) Not Detected B.parapertussis DNA PCR Not Detected C. pneumoniae DNA (PCR) Not Detected Coronavirus OC43 (PCR) Not Detected Coronavirus HKU1 (PCR) Not Detected Coronavirus 229E (PCR) Not Detected SARS-CoV-2 (PCR) Not Detected Coronavirus NL63 (PCR) Not Detected Human Metapneumovir PCR Not Detected Influenza Type B (PCR) Not Detected M. pneumoniae (PCR) Not Detected Parainfluenza 1 (PCR) Not Detected Parainfluenza 2 (PCR) Not Detected Parainfluenza 3 (PCR) Not Detected Parainfluenza 4 (PCR) Not Detected RSV (PCR) Not Detected Entero/Rhino (PCR) Not Detected PG Care Time/CCT Total # of Minutes Spent Total Time Spent with Patient: Total time spent is greater than 50% in coordination of care (as documented) at patient's floor/unit and/or counseling patient: Coding Level of Care Code 10346 SUB INP/OBS CARE 2/35MIN Diagnoses Mobitz type 1 second degree atrioventricular block I44.1 Right bundle branch block I45.10 Mitral regurgitation I34.0
[2023-06-30] MEDS: OSELTAMIVIR PHOSPHATE 75 MG CAP PO SCH (10:43)
--- NOTE | 2023-06-30 11:37 | Hospitalist Progress Note ---
Date of Service June 30, 2023 Assessment & Plan (1) Stroke-like symptoms: (2) Abnormal ECG: (3) Bradycardia: (4) Hypertension: (5) JANE (obstructive sleep apnea): (6) Dysequilibrium: (7) Tobacco use: Plan Patient is a 52 yr male who has a significant past medical history HTN, HLD, untreated sleep apnea, tobacco use disorder who presents to ED secondary to visual change and off balance x 1 day. Strokelike symptoms Disequilibrium --MRI Brain:No acute intracranial findings. No intracranial mass or pathologic enhancement. --Head CTA: Unremarkable CTA of the head. No large vessel occlusion. No intracranial aneurysm. --Neck CTA:Unremarkable CT angiogram of the neck. --ECHO as below --Normal lipid panel Less likely CVA Symptoms likely related to work Clinically improving Consider meclizine if needed Appreciate neurology input PT OT, fall precautions Advised to follow-up with PCP in 1 week Advised to avoid driving until cleared by primary care physician Influenza A Started on Tamiflu Chest x-ray showed no signs of pneumonia Sinus rhythm with second-degree AV block Mobitz type I Chronic sinus bradycardia Conduction abnormality Presented with palpitations --ECHO: No significant change from prior study. Left ventricle systolic function is normal. EF 55 to 60%. Left ventricle wall motion is normal. Mild concentric LVH. Right ventricle is normal in size and function. Mild mitral regurgitation. Right ventricular systolic pressure is normal. -- Avoid AV murali blocking agents as able Appreciate cardiology input Needs follow-up with cardiology on discharge Hypokalemia Hyponatremia Replace electrolytes as needed Monitor HTN Hypertensive urgency on presentation ? Situational BP Variable Continue losartan Monitor BP JANE Untreated Patient was advised to get surgery previously which he refused Needs outpatient sleep study Prediabetes HbA1c 6.4 Advise lifestyle changes Elevated ALT LFTs normalized Monitor Morbid obesity BMI 40 Advise lifestyle changes DVT Px: SCDs Code Status FULL CODE Disposition Home Admission and Anticipated Discharge Date Admission Date: June 28, 2023 Subjective Patient is seen and examined at bedside Patient much improved but still feels fuzzy at times No recurrence of palpitations, headache today Bio fire positive for influenza Admits to have minimal cough but denies any dyspnea, chest pain, nausea, vomiting, abdominal pain Plan to be discharged home today Review of Systems Review of Systems: All systems reviewed & are unremarkable except as noted in Subjective Physical Exam Physical Exam: Physical Exam: Vitals signs as noted above General Appearance:Obese, no apparent distress Head: normocephalic, Atraumatic Eyes: normal inspection, EOMI Neck: supple, Trachea midline Respiratory/Chest: Normal breath sounds, CTA, No accessory muscle use Cardiovascular: S1, S2, No murmur, +Bradycardia Abdomen/GI:Soft, Non tender, Bowel sounds present Extremities/Musculoskeletal:normal inspection, no edema Neurologic/Psych:AAOX3, grossly no focal neurological deficits Skin: normal color, warm Results & Data Results & Data Vital Signs (Past 12 Hours) Vital Signs Temp Pulse Pulse Resp BP Pulse Ox O2 Del Method 06/30/23 09:32 72 06/30/23 07:33 37.0 C 68 18 137/78 95 Room Air 06/30/23 02:46 37.8 C H 74 18 135/76 94 Room Air Laboratory Results Short CBC 06/30/23 Range/Units 05:01 WBC 3.52 L (4.8-10.8) K/ul Hgb 14.0 (14.0-18.0) g/dl Hct 42.0 (42.0-52.0) % Plt Count 114 L (130-400) K/uL BMP 06/30/23 05:01 Sodium 136 Potassium 3.8 Chloride 103 Carbon Dioxide 24 BUN 13 Creatinine 0.93 Glucose 126 H Calcium 8.5 L (4) Hypertension Hypertension type: unspecified Qualified Code(s): I10 - Essential (primary) hypertension
--- NOTE | 2023-06-30 11:45 | Discharge Summary ---
Date of Service June 30, 2023 Admission HPI Per Admitting Provider This is a 52-year-old male who has a significant past medical history HTN, HLD, untreated sleep apnea, tobacco use disorder who presents to ED secondary to visual change and off balance x 1 day. Friend is at bedside and helps elicit history. He states he woke up at approximately 1 30-1 40 5 AM when he noticed his vision to be, "fuzzy." He states when he would, when I his symptoms would go away. He denies any josé miguel diplopia or hemianopsia symptoms. He further states when he woke up this morning he had a significant posterior headache. He denies any photophobia or phonophobia at that time. He denies any previous history of migraines and states that he typically does not have a headache. In association with visual changes he states that he had difficulty walking when getting up to go to the bathroom. This lasted approximately 2 to 3 hours. He states he had to hold onto the wall to be able to walk without falling. 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 Over the last 2 to 3 days he has been training a new machine that throws him [id number]. He also states that he sleeps very poorly and feels like his headache is related to his significant lack of sleep. Friend at bedside states that he has slept poorly for a long time. He does have prior history of sleep apnea that is untreated. He states he was told that he requires surgery. He has never been tested for sleep device. He also states at night he occasionally gets heart palpitations. He denies any recent illness, fever, chills, sweats, lightheadedness, dizziness, chest pain, shortness of breath, cough, nausea, vomit, abdominal pain, change in bowel or urinary habits. He further denies any unilateral weakness, speech changes or numbness or tingling. He denies any difficulty swallowing. Appetite is normal. He does have a history of hypertension and has been prescribed losartan which he has been on for the last 2 to 3 months. He admits to being compliant with this. He does not take his blood pressure at home as he feels this is not accurate. Friend at bedside states his blood pressure, "runs too high." In ED he underwent stroke workup. Admission Exam Per Admitting Provider Constitutional: WD/WN, obese, M, vitals as above, NAD, sitting up in bed, pleasant, conversing easily Head: Normocephalic, Atraumatic Eyes: PERRL, conjunctivae normal, anicteric sclerae ENMT: external ear and nose normal, oropharynx normal Neck: trachea midline, no thyromegaly normal visual inspection Respiratory: normal respiratory effort, lungs clear to auscultation, no wheeze, rales, rhonchi. Normal insp/exp effort, no accessory muscle use Cardiovascular: RRR, no murmur, no edema Vessels: no JVD or carotid bruit Chest: normal inspection of chest Abdomen: protuberant abd, normal bowel sounds, soft, nontender, no hepatosplenomegaly Musculoskeletal: no cyanosis or clubbing, extremities motor strength 5/5 Skin: no rashes, warm and dry normal turgor Neurologic: PERRL, EOMI, accommodation nl, no face palsy, no dysarthria CN's II-XI intact bilaterally and moves all extremities Psychiatric: A+Ox3, euthymic affect Lymphatic: no cervical or axillary lymphadenopathy : deferred Principal Diagnosis Strokelike symptoms Influenza A Bradycardia with conduction abnormality Prediabetes Discharge Data Allergies Allergy/AdvReac Type Severity Reaction Status Date / Time adhesive tape AdvReac Intermediate SKIN TEARS Verified 06/28/23 15:37 Consultations 06/28/23 15:30 ED Decision to Admit Stat 06/28/23 15:58 Consult Neurology Routine 06/28/23 16:17 Consult Cardiology Routine Procedures Performed Laboratory Results WBC 3.52 K/ul (4.8-10.8) L 06/30/23 05:01 RBC 4.71 M/uL (4.70-6.10) 06/30/23 05:01 Hgb 14.0 g/dl (14.0-18.0) 06/30/23 05:01 Hct 42.0 % (42.0-52.0) 06/30/23 05:01 MCV 89.2 fL (80.0-100.0) 06/30/23 05:01 MCH 29.7 pg (25.0-34.0) 06/30/23 05:01 MCHC 33.3 g/dL (32.0-36.0) 06/30/23 05:01 RDW Std Deviation 40.5 fL (36.4-46.3) 06/30/23 05:01 RDW Coeff of Tova 12.3 % (11.5-14.5) 06/30/23 05:01 Plt Count 114 K/uL (130-400) L 06/30/23 05:01 MPV 11.2 fL (9.4-12.4) 06/30/23 05:01 Immature Gran % (Auto) 0.3 % 06/30/23 05:01 Neut % (Auto) 53.0 % 06/30/23 05:01 Lymph % (Auto) 30.4 % 06/30/23 05:01 [place] % (Auto) 14.8 % 06/30/23 05:01 Eos % (Auto) 0.9 % 06/30/23 05:01 Baso % (Auto) 0.6 % 06/30/23 05:01 Neut # (Auto) 1.87 K/uL (1.40-6.50) 06/30/23 05:01 Lymph # (Auto) 1.07 K/uL (1.20-3.40) L 06/30/23 05:01 [place] # (Auto) 0.52 K/uL (0.11-0.59) 06/30/23 05:01 Eos # (Auto) 0.03 K/uL (0.00-0.50) 06/30/23 05:01 Baso # (Auto) 0.02 K/uL (0.00-0.20) 06/30/23 05:01 Immature Gran # (Auto) 0.01 K/uL (0.01-0.20) 06/30/23 05:01 PT 11.1 Seconds (9.0-12.0) 06/28/23 12:44 INR 1.0 (0.9-1.1) 06/28/23 12:44 APTT 26 Seconds (21-31) 06/28/23 12:44 PTT Ratio 0.9 06/28/23 12:44 Sodium 136 mmol/L (136-145) 06/30/23 05:01 Potassium 3.8 mmol/L (3.5-5.1) 06/30/23 05:01 Chloride 103 mmol/L (98-107) 06/30/23 05:01 Carbon Dioxide 24 mmol/L (21-32) 06/30/23 05:01 Anion Gap 9 (3-11) 06/30/23 05:01 BUN 13 mg/dl (6-23) 06/30/23 05:01 Creatinine 0.93 mg/dl (0.6-1.4) 06/30/23 05:01 Est Cr Clr Drug Dosing 134.6 ml/min 06/30/23 05:01 Est GFR ( Amer) 108.2 ml/min 06/30/23 05:01 Est GFR (Non-Af Amer) 93.4 ml/min 06/30/23 05:01 BUN/Creatinine Ratio 14.0 (10-20) 06/30/23 05:01 Glucose 126 mg/dl (70-99(Fasting)) H 06/30/23 05:01 POC Glucose 129 mg/dl (70-99) H 06/30/23 08:01 Estimat Average Glucose 137 mg/dl 06/29/23 04:08 Hemoglobin A1c 6.4 % (4.5-5.6) H 06/29/23 04:08 Calcium 8.5 mg/dl (8.6-10.3) L 06/30/23 05:01 Magnesium 2.2 mg/dl (1.7-2.4) 06/30/23 05:01 Total Bilirubin 0.6 mg/dl (0.2-1.0) 06/29/23 04:08 Direct Bilirubin 0.1 mg/dl (0-0.2) 06/29/23 04:08 AST 33 U/L (13-39) 06/29/23 04:08 ALT 49 U/L (7-52) 06/29/23 04:08 Alkaline Phosphatase 25 U/L (34-104) L 06/29/23 04:08 Troponin I High Sens 15.9 pg/ml (0-20) 06/28/23 12:44 Total Protein 6.6 gm/dl (6.0-8.3) 06/29/23 04:08 Albumin 4.2 gm/dl (3.4-5.0) 06/29/23 04:08 Globulin 2.9 gm/dl (2.5-4.0) 06/28/23 12:44 Albumin/Globulin Ratio 1.5 (0.9-2) 06/28/23 12:44 Triglycerides 107 mg/dl (0-150) 06/29/23 04:08 Cholesterol 174 mg/dl (0-200) 06/29/23 04:08 LDL Cholesterol, Calc 107 mg/dl 06/29/23 04:08 VLDL Cholesterol, Calc 21 mg/dl (0-30) 06/29/23 04:08 HDL Cholesterol 46 mg/dl 06/29/23 04:08 Cholesterol/HDL Ratio 3.8 (0-5) 06/29/23 04:08 Procalcitonin < 0.02 ng/ml (0-0.5) 06/30/23 05:01 Urine Color Yellow 06/28/23 Unknown Urine Appearance Clear (Clear) 06/28/23 Unknown Urine pH 5.0 (4.5-7.5) 06/28/23 Unknown Ur Specific Edson > 1.045 (1.000-1.030) H 06/28/23 Unknown Urine Protein Negative (Negative) 06/28/23 Unknown Urine Glucose (UA) 2+ (Negative) H 06/28/23 Unknown Urine Ketones Trace (Negative) H 06/28/23 Unknown Urine Blood Negative (Negative) 06/28/23 Unknown Urine Nitrite Negative (Negative) 06/28/23 Unknown Urine Bilirubin Negative (Negative) 06/28/23 Unknown Urine Urobilinogen Negative (Negative) 06/28/23 Unknown Ur Leukocyte Esterase Negative (Negative) 06/28/23 Unknown Nasal Influ A H1 2008 PCR DETECTED (NotDetected) A 06/29/23 22:23 Adenovirus (PCR) Not Detected (NotDetected) 06/29/23 22:23 B. pertussis DNA (PCR) Not Detected (NotDetected) 06/29/23 22:23 B.parapertussis DNA PCR Not Detected (NotDetected) 06/29/23 22:23 C. pneumoniae DNA (PCR) Not Detected (NotDetected) 06/29/23 22:23 Coronavirus OC43 (PCR) Not Detected (NotDetected) 06/29/23 22:23 Coronavirus HKU1 (PCR) Not Detected (NotDetected) 06/29/23 22:23 Coronavirus 229E (PCR) Not Detected (NotDetected) 06/29/23 22:23 SARS-CoV-2 (PCR) Not Detected (NotDetected) 06/29/23 22:23 Coronavirus NL63 (PCR) Not Detected (NotDetected) 06/29/23 22:23 Human Metapneumovir PCR Not Detected (NotDetected) 06/29/23 22:23 Influenza Type B (PCR) Not Detected (NotDetected) 06/29/23 22:23 M. pneumoniae (PCR) Not Detected (NotDetected) 06/29/23 22:23 Parainfluenza 1 (PCR) Not Detected (NotDetected) 06/29/23 22:23 Parainfluenza 2 (PCR) Not Detected (NotDetected) 06/29/23 22:23 Parainfluenza 3 (PCR) Not Detected (NotDetected) 06/29/23 22:23 Parainfluenza 4 (PCR) Not Detected (NotDetected) 06/29/23 22:23 RSV (PCR) Not Detected (NotDetected) 06/29/23 22:23 Entero/Rhino (PCR) Not Detected (NotDetected) 06/29/23 22:[address] 06/28/23 12:25 CT SCAN OF THE BRAIN WITHOUT IV CONTRAST CLINICAL HISTORY: Neurological deficit. Stroke like symptoms. COMPARISON STUDY: CT of the brain dated 08/10/2021. TECHNIQUE: Unenhanced axial CT scan of the brain is performed from the vertex to the skull base. A dose lowering technique was utilized adhering to the principles of ALARA. FINDINGS: Brain parenchyma: There is minimal microangiopathic disease. There is no hemorrhage, mass effect, or evidence of acute territorial ischemia by CT criteria. Baptiste-white matter differentiation is preserved. No extra-axial fluid collection is seen. Ventricles, sulci, cisterns: Normal in configuration. Intracranial vasculature: There is atherosclerotic calcification of the cavernous carotid arteries. Calvarium: Unremarkable. Sinuses and mastoids: There is moderate mucosal thickening within the ethmoid and left maxillary sinuses. Mild mucosal thickening is noted in the sphenoid and frontal sinuses. The mastoid air cells are well pneumatized. Orbits: The bony orbits are grossly intact. IMPRESSION: There is no hemorrhage, mass effect, or evidence of acute territorial ischemia by CT criteria. ACT 112: Negative or not required by law. Electronically signed by: Edgard Hunt M.D. 06/28/2023 2:42 PM Head CTA 06/28/23 12:25 CTA ANGIOGRAPHY OF THE HEAD CLINICAL HISTORY: neuro deficit, acute stroke suspected COMPARISON STUDY: Head CT August 10, 2021. TECHNIQUE: Helical axial images of the head were obtained following uneventful intravenous administration of 118 cc of Optiray. Sagittal and coronal reconstructions were viewed as well as maximal intensity projections on an in dependent 3-D workstation. Automated exposure control was utilized for the study. A dose lowering technique was utilized adhering to the principles of ALARA. CT DOSE: 1078.79 mGy.cm FINDINGS: No acute intracranial hemorrhage, midline shift or mass effect is present. Ventricular system is normal. Basal cisterns are patent. There are no extra-axial collections. Moderate polypoid mucosal thickening of the left maxillary, ethmoid and left sphenoid sinuses is similar to prior CT of August 10, 2021. The bilateral M1, M2, A1 and A2 segments are patent. There is no central vessel occlusion. The posterior circulation is intact. No intracranial aneurysm is present. There is no dissection within the intracranial vessels. Posterior circulation is intact. Major dural sinuses are grossly patent. IMPRESSION: Unremarkable CTA of the head. No large vessel occlusion. No intracranial aneurysm. ACT 112: Negative or not required by law. Electronically signed by: Won Obrien M.D. 06/28/2023 2:38 PM Neck CTA 06/28/23 12:25 CT ANGIOGRAM OF THE NECK CLINICAL HISTORY: Neurological deficit. Strokelike symptoms. COMPARISON STUDY: No priors. TECHNIQUE: Following the IV administration of 118 of Optiray 320, CT angiogram of the neck was performed from the aortic arch to the skull base. Images are reviewed in the axial, sagittal, and coronal planes. 3-D MIPS images are created and assessed. IV contrast was administered without complication. All measurements were calculated based on NASCET criteria. A dose lowering technique was utilized adhering to the principles of ALARA. FINDINGS: Thoracic aorta: Visualized portions of the thoracic aorta are normal in caliber. The aortic arch demonstrates standard 3-vessel anatomy. Right carotid arterial system: The right common carotid artery is widely patent, as are the right internal and external carotid arteries. Left carotid arterial system: The left common carotid artery is widely patent, as are the left internal and external carotid arteries. Vertebral arteries: The vertebral arteries are widely patent bilaterally and codominant. Subclavian arteries: Widely patent bilaterally. Intracranial vasculature: The visualized intracranial vessels at the skull base are patent. Jugular veins: Widely patent bilaterally. Brain parenchyma: The visualized brain parenchyma the skull base is within normal limits. Lung apices: Partially visualized upper lobe lung parenchyma appears clear. Soft tissues: The visualized pharyngeal soft tissues are normal in appearance noting angiographic phase technique. The oropharyngeal airway appears widely patent. The salivary and thyroid glands are normal in appearance. No cervical lymphadenopathy is seen. Skeletal structures: The visualized calvarium at the skull base appears intact. The imaged cervical spine is maintained noting multilevel spondylosis. Sinuses and mastoids: There is moderate mucosal thickening in the left maxillary antrum and the visualized ethmoid sinuses. Mucosal thickening is also seen in the sphenoid sinuses. The mastoid air cells are well pneumatized IMPRESSION: Unremarkable CT angiogram of the neck. ACT 112: Negative or not required by law. Electronically signed by: Edgard Hunt M.D. 06/28/2023 2:38 PM Brain MRI 06/28/23 15:58 MRI OF THE BRAIN WITHOUT AND WITH IV CONTRAST CLINICAL HISTORY: Stroke. COMPARISON STUDY: Head CT and CTA of the head performed earlier today. TECHNIQUE: Utilizing a 1.5 Valerie magnet and dedicated coil, multiplanar, multiecho imaging of the brain was performed pre and postcontrast administration. IV administration of 14 mL [address] contrast was uneventful. FINDINGS: There are no foci of restricted diffusion to suggest acute infarct. No acute intracranial hemorrhage, midline shift or mass effect is present. Ventricular system is unremarkable. Basal cisterns are patent. There are no extra-axial collections. There is no intracranial mass or pathologic enhancement. A few small white matter T2 hyperintense foci suggest minimal small vessel disease. Calvarial signal is normal. Polypoid mucosal thickening within the sinuses is similar to CT of August 10, 2021. This is likely chronic. IMPRESSION: 1. No acute intracranial findings. 2. No intracranial mass or pathologic enhancement. ACT 112: Negative or not required by law. Electronically signed by: Won Obrien M.D. 06/28/2023 5:42 PM Chest X-Ray 06/30/23 07:00 SINGLE VIEW CHEST CLINICAL HISTORY: Cough FINDINGS: An AP, portable, upright chest radiograph is compared to study dated 06/28/2023. The examination is degraded by portable technique and apical lordotic positioning. The heart appears mildly enlarged. The pulmonary vasculature is noncongested. Mild atelectasis is noted at the lung bases. The lungs and pleural spaces are otherwise clear. No pneumothorax is seen. The bony thorax is grossly intact. IMPRESSION: No active disease in the chest. ACT 112: Negative or not required by law. Electronically signed by: Edgard Hunt M.D. 06/30/2023 7:34 AM Ordered Studies 06/28/23 12:25 CT angio head w con Stat CT angio neck with con Stat CT head/brain wo con Stat 06/28/23 15:58 MR brain wo/w con Routine Hospital Course (1) Stroke-like symptoms: (2) Abnormal ECG: (3) Bradycardia: (4) Hypertension: (5) JANE (obstructive sleep apnea): (6) Dysequilibrium: (7) Tobacco use: Plan Patient is a 52 yr male who has a significant past medical history HTN, HLD, untreated sleep apnea, tobacco use disorder who presents to ED secondary to visual change and off balance x 1 day. Strokelike symptoms Disequilibrium --MRI Brain:No acute intracranial findings. No intracranial mass or pathologic enhancement. --Head CTA: Unremarkable CTA of the head. No large vessel occlusion. No intracranial aneurysm. --Neck CTA:Unremarkable CT angiogram of the neck. --ECHO as below --Normal lipid panel Less likely CVA Symptoms likely related to work Clinically improving Consider meclizine if needed Appreciate neurology input PT OT, fall precautions Advised to follow-up with PCP in 1 week Advised to avoid driving until cleared by primary care physician Influenza A Started on Tamiflu Chest x-ray showed no signs of pneumonia Sinus rhythm with second-degree AV block Mobitz type I Chronic sinus bradycardia Conduction abnormality Presented with palpitations --ECHO: No significant change from prior study. Left ventricle systolic function is normal. EF 55 to 60%. Left ventricle wall motion is normal. Mild concentric LVH. Right ventricle is normal in size and function. Mild mitral regurgitation. Right ventricular systolic pressure is normal. -- Avoid AV murali blocking agents as able Appreciate cardiology input Needs follow-up with cardiology on discharge Hypokalemia Hyponatremia Replace electrolytes as needed Monitor HTN Hypertensive urgency on presentation ? Situational BP Variable Continue losartan Monitor BP JANE Untreated Patient was advised to get surgery previously which he refused Needs outpatient sleep study Prediabetes HbA1c 6.4 Advise lifestyle changes Elevated ALT LFTs normalized Monitor Morbid obesity BMI 40 Advise lifestyle changes DVT Px: SCDs Code Status FULL CODE Disposition Home Total Time Total Time Spent Total Time Spent (In Minutes): 48 minutes Discharge Plan Discharge Items Patient Disposition: Home - Self-Care Reason For Visit: STROKE LIKE SX Discharge Diagnosis: Strokelike symptoms Influenza A Bradycardia with conduction abnormality Prediabetes Activity: Per Instructions section Exercise/Sports: Wait until after follow-up appointment Non-emergency contact: Primary Care Provider and Radial Router Operator Call non-emergency contact if: you have any medication questions, your symptoms worsen, your pain is concerning for you and you have a fever Follow-up/Referrals: Laron Ren MD [Primary Care Provider] - (Date & Time 07/03/2023 10:20 AM Provider Laron Ren MD [facility] ) Diet: Heart Healthy Addtl Attending Provider Instructions: Follow-up with your primary care physician Dr. 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 Grullon as recommended --- Complete Tamiflu course as prescribed ---Get outpatient sleep study as advised --- No driving until cleared by your primary care physician. Seek immediate medical attention if your symptoms reoccur or worsen Please take all medications as instructed on discharge list below. Please call if you have any questions or problems. You can reach a [facility] hospitalist on duty at [facility] 24 hours a day by calling [phone] Pending Studies at Discharge: No Stand-Alone Forms: My [facility], Work/School Release, Smoking Cessation Medications and DC Order Prescriptions: New oseltamivir [Tamiflu] 75 mg Capsule 75 mg PO BID Qty: 9 0RF Continued losartan 100 mg tablet 100 mg PO DAILY Discharge Orders: Discharge Order (Routine); Ordered 06/30/23 Ordered By: Valeriy Timmons/Other Patient Handouts: Prediabetes, 5 Steps for Eating Healthier Admission Data Admit Date/Time: 06/28/23 15:35 Attending Provider: Valeriy Daly Admit Provider: Marielena Jacobson Primary Care Provider: Laron Ren Other Providers: Marielena Jacobson; David Leblanc; Kuldip Grullon
== END 2023-06-30 12:49 | disposition home or self-care (01) ==
LOC: ED 12:19 → SUATTDRO 15:35 → EDINP 15:35 → INTOOBSV 15:35 → 4W 17:42